=== PATIENT | male | born 1985 | race Caucasian/White ===

== ENCOUNTER 2016-08-14 22:31 | Emergency (ER) | payer SELFPAY ==
--- NOTE | 2016-08-14 23:10 | ED NURSING NOTES ---
Clinical Report - Nurses [facility] [address] [place] [address] 08/14/2016 22:32 Patient: LIZ PEDRO TRIAGE Triage time 22:37 Apr 2016. Acuity: LEVEL 4. Chief Complaint: RIGHT UPPER TOOTHACHE and (pt c/o dental pain RU, x 3 months, has not seen the dentist). Alert. No acute distress. SEPSIS SCREEN: Sepsis Screen: negative. Negative (no infection suspected/documented). --22:43 Ej Faith R.N. 22:37 08/14/16. --23:10 Ej Faith R.N. 22:37 08/14/16. BP: 134/80. HR: 94. RR: 19. O2 saturation: 96%. Temp: 98.0 F. Pain level now 10/13. --23:11 Ej Faith R.N. Weight: 61.2 kg stated. Height/Length: 70 inches Per Patient. BMI: 19.4. --22:41 Ej Faith R.N. Medications None. --22:39 Ej Faith R.N. Medication/allergy information source: the patient. --22:43 Ej Faith R.N. Allergies None. --22:39 Ej Faith R.N. History Arrived by private vehicle. Historian: patient. Accompanied by friend. Onset. (3 months). He has no dental appointment scheduled. He has had facial pain and ear pain. He has had a toothache. PAST MEDICAL HX: Immunizations: up-to-date. SOCIAL HX: Heavy tobacco smoker- 1 pack per day. Alcohol use; consumes beer occasionally. History of heavy drug use: marijuana. No infectious disease exposure. ABUSE ASSESSMENT: No report of abuse. SELF HARM ASSESSMENT: A self harm assessment was performed. The patient answered "no" to the question "Have you recently felt down, depressed, or hopeless?", "Have you noticed less interest or pleasure in doing things?", "Do you have thoughts of harming or killing yourself?", "Are you here because you tried to hurt yourself?", "Have you ever tried to hurt yourself before today?", "Have you recently had thoughts about harming or killing others?" and "Do you have any dangerous items in your possession?". FALL RISK ASSESSMENT: Fall risk assessment completed. No fall risk identified. NUTRITIONAL RISK ASSESSMENT: The nutritional risk assessment revealed no deficiencies. FUNCTIONAL ASSESSMENT: Functional assessment: no impairments noted. LEARNING NEEDS ASSESSMENT: The learning needs assessment revealed no barriers. SKIN INTEGRITY ASSESSMENT: Skin integrity risk assessment completed. No skin integrity risk identified. --22:43 Ej Faith R.N. PROBLEMS: Childhood asthma. --22:40 Ej Faith R.N. ADDITIONAL SURGERIES: Hernia Repair. Knee Surgery. --22:40 Ej Faith R.N. Interventions ID band on patient. To treatment room. --22:43 Ej Faith R.N. PHYSICAL ASSESSMENT GENERAL / NEURO / PSYCH: Alert. Oriented X 4. Appears in no acute distress. HEENT: Pupils equal, round and reactive to light. Voice within normal limits. Moderate dental tenderness (right upper). Dental decay (right upper teeth). Mucous membranes are pink. RESPIRATORY: Respirations not labored. CVS: Capillary refill less than 2 seconds. SKIN: Skin is warm and dry. Normal skin turgor. --22:44 Ej aFith R.N. Ambulatory to room. --22:45 Ej Faith R.N. NURSING PROGRESS NOTES Head of bed elevated. Reassurance given to the patient. Two patient identifiers checked. Call light placed in reach. Side rails up x 1. Bed placed in lowest position. Brakes of bed on. Patient ready for evaluation- chart flagged. Patient waiting for evaluation. --22:45 Ej Faith R.N. 22:56 08/14/2016 Penicillin V Potassium PO Tablets 500 mg given. Allergies verified and confirmed 5 rights. --23:01 Ej Faith R.N. Reassessment after medication administered. He has had no adverse reaction. --23:14 Ej Faith R.N. 23:14 08/14/2016 Penicillin V Potassium PO Response: no adverse reaction. --23:15 Ej aFith R.N. DISPOSITION / DISCHARGE Departure time: 23:14 Aug 14 2016. Condition at departure: unchanged. The goals identified in the patient's plan of care were met. ( MD offered pt dental block and pt declined "I have a high pain tolerance"). No learning barriers present. Discharge instructions provided and reviewed with the patient. Reviewed medication(s) side effects and course information. Prescription(s) given to the patient. Reviewed need to stop smoking. Patient verbalized understanding. Written instructions provided in Polish. The patient was discharged by the physician. He was discharged home and accompanied by franchise manager. He left the Emergency Department ambulatory and via private vehicle. Patient driving. FALL RISK ASSESSMENT: Fall risk assessment completed. No fall risk identified. --23:14 Ej Faith R.N. 23:11 08/14/16. BP: 125/71. HR: 86. RR: 17. O2 saturation: 98%. Temp: 97.6 F. Pain level now 10. --23:14 Ej Faith R.N. Locked/Released at 08/15/2016 13:55 by Ej Faith R.N.
--- NOTE | 2016-08-14 23:10 | ED CLINICAL REPORT ---
Clinical Report - Physicians/Mid Levels [facility] [address] [place] [address] 08/14/2016 22:32 Patient: LIZ PEDRO Time Seen: 2240. Arrived- By private vehicle. Historian- patient. HISTORY OF PRESENT ILLNESS Chief Complaint: DENTAL PAIN. This started Off and on for the past several weeks and is still present and worsening. It was abrupt in onset and has been intermittent but is not gone now. Pain described as moderate. The patient has had toothache and facial pain. Similar symptoms previously: None. Recent medical care: Not recently seen/assessed. REVIEW OF SYSTEMS No skin rash. All systems otherwise negative, except as recorded above. PAST HISTORY See nurses notes. SOCIAL HISTORY Smoker- current status unknown. Alcohol use. History of drug use: marijuana. No recent travel. Is a local resident. ADDITIONAL NOTES The nursing notes have been reviewed. PHYSICAL EXAM Vital Signs: 08/14/2016 22:37 BP: 134/80. HR: 94. RR: 19. O2 saturation: 96%. Temp: 98.0 F. Blood pressure normal. Oxygen saturation normal. Appearance: Alert. No acute distress. Head: Normal external inspection. Eyes: Pupils equal, round and reactive to light. Conjunctivae and eyelids normal. ENT: Moderate, extensive dental decay (upper right molars). Ears normal. Nose normal. Pharynx normal. Lips normal. Gums normal. No trismus present. Uvula midline. (no brawny edema). Neck: Normal inspection. Trachea midline. No adenopathy. Thyroid normal. Neck supple. CVS: Normal heart rate and rhythm. Heart sounds normal. Pulses normal. Respiratory: No respiratory distress. Breath sounds normal. Chest nontender. Skin: Normal skin color. No rash. Normal skin turgor. PROGRESS AND PROCEDURES Course of Care: The patient is a pleasant 30 yo female presenting for evaluation of dental pain. Patient has been evaluated for retropharyngeal abscess, Ludwigs angina, acute necrotizing ulcerative gingivitis, and peritonsillar abscess. The exam findings are not consistent with any of these etiologies. Evidence for dental pain noted on examination. No concern for airway compromise at this time. Patient appears nontoxic. Vital signs are otherwise unremarkable. Do not feel patient is septic at this time. Patient be managed conservatively at this time with antibiotics and nonsteroidal anti-inflammatory medications as tolerated. Patient be instructed to avoid nonsteroidal anti-inflammatory medications if theyre allergic or have intolerances. Did not feel patient needs to be admitted to the hospital or require further emergency department workup/evaluation. Encouraged patient to follow up with the dentist as soon as possible ideally within the next 2 or 3 days. Has appointment tomorrow which she is encouraged to keep. Reviewed risks and benefits of the procedure. Patient has been reevaluated. No evidence of airway compromise. Patient continues to be nontoxic and in no acute distress. I discussed the patient workup, diagnosis, home care, follow-up, and return precautions. All questions answered. The patient expressed understanding of these instructions and was agreeable to them. CLINICAL IMPRESSION 08/14/2016 22:42 BP: 122/79. HR: 84. RR: 17. O2 saturation: 98%. Temp: 98.1 F. Pain level now: 4/10. Oxygen saturation normal. Dental caries (extensive decay) (acute). right facial pain, acute. INSTRUCTIONS Warnings: GENERAL WARNINGS: Return or contact your physician immediately if your condition worsens or changes unexpectedly, if not improving as expected, or if other problems arise. Specifically return if pain, vomiting, bleeding, breathing difficulty or fever. Your Current Medications: CONTINUE TAKING THE FOLLOWING MEDICATIONS: None*. Prescription Medications: Penicillin V 500 mg: take 1 tab orally every 8 hours for 10 days. Dispense thirty (30). No refills. (disp 30 tabs) Motrin 600 mg tablets: take 1 tablet orally every 6 hours as needed for pain, stiffness or swelling. Dispense thirty (30). No refill. Substitution is permissible. (take with food) Follow-up: Return to the emergency department as needed. Follow up with your doctor in three days. Reason for referral: recheck today's concerns. Summary of care provided to patient via paper. Screening today revealed the patient's blood pressure to be in the normal range. The patient should follow up with a primary care provider for blood pressure management. Understanding of the discharge instructions verbalized by patient. (Electronically signed by Soham Lion Dr. 08/20/2016 18:24)
--- NOTE | 2016-08-14 23:10 | ED ORDER SUMMARY ---
..... Patient: LIZ PEDRO OrderSheet [facility] VisitID: [id number] [place] [address] 30y, M Registration Date/Time: 08/14/2016 ORDER SHEET Weight: 61.2 kg (stated) Allergies: None GENERAL ORDERS: MEDICATION ORDERS: Penicillin V Potassium PO 500 mg (NOW) (22:48 08/14/2016 Olivia Toledo) (Ack 22:53 Tiffanie R.NSean) (23:01 Tiffanie Davenport.Stephanie) IV FLUIDS: ORDER SHEET NOTES: [Electronically signed by Ej Faith R.N. (13:55 08/15/2016)] [Electronically signed by Soham Lion Dr. (18:24 08/20/2016)] [Electronically locked/signed by Ej Faith R.N. (13:55 08/15/2016)]
--- NOTE | 2016-08-14 23:10 | ED NURSING NOTES ---
Clinical Report - Nurses Merged [facility] [address] [place] [address] 08/14/2016 22:32 Patient: LIZ PEDRO TRIAGE Triage time 22:37 Apr 2016. Acuity: LEVEL 4. Chief Complaint: RIGHT UPPER TOOTHACHE and (pt c/o dental pain RU, x 3 months, has not seen the dentist). Alert. No acute distress. SEPSIS SCREEN: Sepsis Screen: negative. Negative (no infection suspected/documented). --22:43 Ej Faith R.N. 22:37 08/14/16. --23:10 Ej Faith R.N. 22:37 08/14/16. BP: 134/80. HR: 94. RR: 19. O2 saturation: 96%. Temp: 98.0 F. Pain level now 10/13. --23:11 Ej Faith R.N. Weight: 61.2 kg stated. Height/Length: 70 inches Per Patient. BMI: 19.4. --22:41 Ej Faith R.N. Medications None. --22:39 Ej Faith R.N. Medication/allergy information source: the patient. --22:43 Ej Faith R.N. Allergies None. --22:39 Ej Faith R.N. History Arrived by private vehicle. Historian: patient. Accompanied by friend. Onset. (3 months). He has no dental appointment scheduled. He has had facial pain and ear pain. He has had a toothache. PAST MEDICAL HX: Immunizations: up-to-date. SOCIAL HX: Heavy tobacco smoker- 1 pack per day. Alcohol use; consumes beer occasionally. History of heavy drug use: marijuana. No infectious disease exposure. ABUSE ASSESSMENT: No report of abuse. SELF HARM ASSESSMENT: A self harm assessment was performed. The patient answered "no" to the question "Have you recently felt down, depressed, or hopeless?", "Have you noticed less interest or pleasure in doing things?", "Do you have thoughts of harming or killing yourself?", "Are you here because you tried to hurt yourself?", "Have you ever tried to hurt yourself before today?", "Have you recently had thoughts about harming or killing others?" and "Do you have any dangerous items in your possession?". FALL RISK ASSESSMENT: Fall risk assessment completed. No fall risk identified. NUTRITIONAL RISK ASSESSMENT: The nutritional risk assessment revealed no deficiencies. FUNCTIONAL ASSESSMENT: Functional assessment: no impairments noted. LEARNING NEEDS ASSESSMENT: The learning needs assessment revealed no barriers. SKIN INTEGRITY ASSESSMENT: Skin integrity risk assessment completed. No skin integrity risk identified. --22:43 Ej Faith R.N. PROBLEMS: Childhood asthma. --22:40 Ej Faith R.N. ADDITIONAL SURGERIES: Hernia Repair. Knee Surgery. --22:40 Ej Faith R.N. Interventions ID band on patient. To treatment room. --22:43 Ej Faith R.N. PHYSICAL ASSESSMENT GENERAL / NEURO / PSYCH: Alert. Oriented X 4. Appears in no acute distress. HEENT: Pupils equal, round and reactive to light. Voice within normal limits. Moderate dental tenderness (right upper). Dental decay (right upper teeth). Mucous membranes are pink. RESPIRATORY: Respirations not labored. CVS: Capillary refill less than 2 seconds. SKIN: Skin is warm and dry. Normal skin turgor. --22:44 Ej Faith R.N. Ambulatory to room. --22:45 Ej Faith R.N. NURSING PROGRESS NOTES Head of bed elevated. Reassurance given to the patient. Two patient identifiers checked. Call light placed in reach. Side rails up x 1. Bed placed in lowest position. Brakes of bed on. Patient ready for evaluation- chart flagged. Patient waiting for evaluation. --22:45 Ej Faith R.N. 22:56 08/14/2016 Penicillin V Potassium PO Tablets 500 mg given. Allergies verified and confirmed 5 rights. --23:01 Ej Faith R.N. Reassessment after medication administered. He has had no adverse reaction. --23:14 Ej Faith R.N. 23:14 08/14/2016 Penicillin V Potassium PO Response: no adverse reaction. --23:15 Ej Faith R.N. DISPOSITION / DISCHARGE Departure time: 23:14 Aug 14 2016. Condition at departure: unchanged. The goals identified in the patient's plan of care were met. ( MD offered pt dental block and pt declined "I have a high pain tolerance"). No learning barriers present. Discharge instructions provided and reviewed with the patient. Reviewed medication(s) side effects and course information. Prescription(s) given to the patient. Reviewed need to stop smoking. Patient verbalized understanding. Written instructions provided in Yoruba. The patient was discharged by the physician. He was discharged home and accompanied by gut puller. He left the Emergency Department ambulatory and via private vehicle. Patient driving. FALL RISK ASSESSMENT: Fall risk assessment completed. No fall risk identified. --23:14 Ej Faith R.N. 23:11 08/14/16. BP: 125/71. HR: 86. RR: 17. O2 saturation: 98%. Temp: 97.6 F. Pain level now 10. --23:14 Ej Faith R.N. Locked/Released at 08/15/2016 13:55 by Ej Faith R.N.
--- NOTE | 2016-08-14 23:10 | ED ORDER SUMMARY ---
..... Patient: LIZ PEDRO OrderSheet [facility] VisitID: [id number] [place] [address] 30y, M Registration Date/Time: 08/14/2016 ORDER SHEET Weight: 61.2 kg (stated) Allergies: None GENERAL ORDERS: MEDICATION ORDERS: Penicillin V Potassium PO 500 mg (NOW) (22:48 08/14/2016 Olivia Toledo) (Ack 22:53 Tiffanie R.NSean) (23:01 Tiffanie Davenport.Stephanie) IV FLUIDS: ORDER SHEET NOTES: [Electronically signed by Ej Faith R.N. (13:55 08/15/2016)] [Electronically signed by Soham Lion Dr. (18:24 08/20/2016)] [Electronically locked/signed by Ej Faith R.N. (13:55 08/15/2016)]
--- NOTE | 2016-08-20 18:24 | ED DISCHARGE INSTRUCTIONS ---
Patient: LIZ PEDRO General Instructions [facility] VisitID: [id number] [place] [address] 30y, M Registration Date/Time: 08/14/2016 08/14/2016 22:42 BP: 122/79. HR: 84. RR: 17. O2 saturation: 98%. Temp: 98.1 F. Pain level now: 4/10. Oxygen saturation normal. Dental caries (extensive decay) (acute). right facial pain, acute. INSTRUCTIONS Warnings: GENERAL WARNINGS: Return or contact your physician immediately if your condition worsens or changes unexpectedly, if not improving as expected, or if other problems arise. Specifically return if pain, vomiting, bleeding, breathing difficulty or fever. Your Current Medications: CONTINUE TAKING THE FOLLOWING MEDICATIONS: None*. Prescription Medications: Penicillin V 500 mg: take 1 tab orally every 8 hours for 10 days. Dispense thirty (30). No refills. (disp 30 tabs) Motrin 600 mg tablets: take 1 tablet orally every 6 hours as needed for pain, stiffness or swelling. Dispense thirty (30). No refill. Substitution is permissible. (take with food) Follow-up: Return to the emergency department as needed. Follow up with your doctor in three days. Reason for referral: recheck today's concerns. Summary of care provided to patient via paper. Screening today revealed the patient's blood pressure to be in the normal range. The patient should follow up with a primary care provider for blood pressure management. Understanding of the discharge instructions verbalized by patient. ADDITIONAL INFORMATION Dental Cavity A dental cavity is a pit or crater in the enamel surface of the tooth. This exposes the sensitive inner layer of the tooth and causes pain. If untreated, the cavity will get bigger and may cause an infection or abscess in the root of the tooth. An infection in the tooth is a much more serious problem and may require a root canal or removal of the entire tooth. The tooth pain may be made worse by drinking hot or cold fluids. It may spread from the tooth to the ear or jaw on the same side. Home Care: Avoid hot and cold foods, and liquids since your tooth may be sensitive to temperature changes. If your tooth is chipped or cracked, or if there is a large open cavity, apply OIL OF CLOVES (available zvyw-rli-rifvxqe in drug stores) directly to the tooth to reduce pain. Some pharmacies carry an eeiy-glb-awtwxhc "toothache kit." This contains oil of cloves and a paste, which can be applied over the exposed tooth to decrease sensitivity. An ice pack on your jaw over the sore area may help to reduce pain. You may use acetaminophen (Tylenol) or ibuprofen (Motrin, Advil) to control pain, unless another pain medicine was prescribed. [ NOTE: If you have liver disease or ever had a stomach ulcer, talk with your doctor before using these medicines.] If you have signs of an infection, an antibiotic will be given. Take it as directed. Follow-Up with your dentist as directed. Although your pain may go away with the treatment given, only a dentist can fully evaluate and treat this problem to prevent further tooth damage. Get Prompt Medical Attention if any of the following occur: Redness or swelling of the face Pain worsens or spreads to the neck Fever over 100.5 F (38C) Unusual drowsiness; headache or stiff neck; weakness or fainting Pus drains from the tooth or gum Difficulty swallowing or breathing Dental Pain A crack or cavity in the tooth, which exposes the sensitive inner area of the tooth can cause tooth pain. An infection in the gum or the root of the tooth can cause pain and swelling. The pain is often made worse by drinking hot or cold fluids, or biting on hard foods. Pain may spread from the tooth to the ear or jaw on the same side. Home Care: Avoid hot and cold foods and liquids since your tooth may be sensitive to temperature changes. If your tooth is chipped or cracked, or if there is a large open cavity, apply OIL OF CLOVES (available bpbf-wwm-bopbwma in drug stores) directly to the tooth to reduce pain. Some pharmacies carry an zrdf-bnb-oczniog "toothache kit." This contains a paste, which can be applied over the exposed tooth to decrease sensitivity. A cold pack on your jaw over the sore area may help reduce pain. You may use acetaminophen (Tylenol) or ibuprofen (Motrin, Advil) to control pain, unless another medicine was prescribed. [ NOTE: If you have chronic liver or kidney disease or ever had a stomach ulcer or GI bleeding, talk with your doctor before using these medicines.] If you have signs of an infection, an antibiotic will be given. Take it as directed. Follow-Up as directed with a dentist. Your pain may go away with the treatment given. However, only a dentist can fully evaluate and treat the cause and prevent the pain from coming back again. TOOTHACHE IS A SIGN OF DISEASE IN YOUR TOOTH AND SHOULD BE EXAMINED AND TREATED BY A DENTIST. Get Prompt Medical Attention if any of the following occur: Your face becomes swollen or red Pain worsens or spreads to the neck Fever over 100.4 F (38.0 C) Unusual drowsiness; headache or stiff neck; weakness or fainting Pus drains from the tooth Difficulty swallowing or breathing Penicillin V Potassium Oral tablet What is this medicine? PENICILLIN V (pen i SILL in V) is a penicillin antibiotic. It is used to treat certain kinds of bacterial infections. It will not work for colds, flu, or other viral infections. How should I use this medicine? Take this medicine by mouth with a full glass of water. Follow the directions on the prescription label. Take your medicine at regular intervals. Do not take your medicine more often than directed. Take all of your medicine as directed even if you think your are better. Do not skip doses or stop your medicine early. Talk to your recruitment specialist regarding the use of this medicine in children. While this drug may be prescribed for selected conditions, precautions do apply. What side effects may I notice from receiving this medicine? Side effects that you should report to your doctor or health skin care consultant as soon as possible: allergic reactions like skin rash or hives, swelling of the face, lips, or tongue breathing problems fever new symptoms of infection redness, blistering, peeling or loosening of the skin, including inside the mouth unusually weak or tired Side effects that usually do not require medical attention (report to your doctor or health skin care consultant if they continue or are bothersome): diarrhea headache nausea, vomiting sore mouth or tongue stomach upset What may interact with this medicine? control pills methotrexate other antibiotics probenecid some vaccines What if I miss a dose? If you miss a dose, take it as soon as you can. If it is almost time for your next dose, take only that dose. Do not take double or extra doses. Where should I keep my medicine? Keep out of the reach of children. Store at room temperature between 15 and 30 degrees C (59 and 86 degrees F). Keep container tightly closed. Throw away any unused medicine after the expiration date. What should I tell my health care provider before I take this medicine? They need to know if you have any of these conditions: asthma bowel disease, like colitis eczema kidney disease an unusual or allergic reaction to penicillin, cephalosporins, other antibiotics or medicines, foods, tartrazine or other dyes, or preservatives or trying to get breast-feeding What should I watch for while using this medicine? Tell your doctor or health skin care consultant if your symptoms do not improve. Do not treat diarrhea with over the counter products. Contact your doctor if you have diarrhea that lasts more than 2 days or if it is severe and watery. If you have diabetes, you may get a false-positive result for sugar in your urine. Check with your doctor or health skin care consultant. control pills may not work properly while you are taking this medicine. Talk to your doctor about using an extra method of control. Ibuprofen Oral tablet What is this medicine? IBUPROFEN (eye BYOO proe fen) is a non-steroidal anti-inflammatory drug (NSAID). It is used for dental pain, fever, headaches or migraines, osteoarthritis, rheumatoid arthritis, or painful monthly periods. It can also relieve minor aches and pains caused by a cold, flu, or sore throat. How should I use this medicine? Take this medicine by mouth with a glass of water. Follow the directions on the prescription label. Take this medicine with food if your stomach gets upset. Try to not lie down for at least 10 minutes after you take the medicine. Take your medicine at regular intervals. Do not take your medicine more often than directed. A special MedGuide will be given to you by the pharmacist with each prescription and refill. Be sure to read this information carefully each time. Talk to your recruitment specialist regarding the use of this medicine in children. Special care may be needed. What side effects may I notice from receiving this medicine? Side effects that you should report to your doctor or health skin care consultant as soon as possible: allergic reactions like skin rash, itching or hives, swelling of the face, lips, or tongue black or bloody stools, blood in the urine or in vomit breathing problems changes in vision chest pain general ill feeling or flu-like symptoms nausea or vomiting redness, blistering, peeling or loosening of the skin, including inside the mouth slurred speech or weakness on one side of the body stomach pain unexplained weight gain or swelling unusually weak or tired yellowing of eyes or skin Side effects that usually do not require medical attention (report to your doctor or health skin care consultant if they continue or are bothersome): constipation or diarrhea dizziness gas or heartburn stomach upset What may interact with this medicine? Do not take this medicine with any of the following medications: cidofovir ketorolac methotrexate pemetrexed This medicine may also interact with the following medications: alcohol aspirin diuretics lithium other drugs for inflammation like prednisone warfarin What if I miss a dose? If you miss a dose, take it as soon as you can. If it is almost time for your next dose, take only that dose. Do not take double or extra doses. Where should I keep my medicine? Keep out of the reach of children. Store at room temperature between 15 and 30 degrees C (59 and 86 degrees F). Keep container tightly closed. Throw away any unused medicine after the expiration date. What should I tell my health care provider before I take this medicine? They need to know if you have any of these conditions: asthma cigarette smoker drink more than 3 alcohol containing drinks a day heart disease or circulation problems such as heart failure or leg edema (fluid retention) high blood pressure kidney disease liver disease stomach bleeding or ulcers an unusual or allergic reaction to ibuprofen, aspirin, other NSAIDS, other medicines, foods, dyes, or preservatives or trying to get breast-feeding What should I watch for while using this medicine? Tell your doctor or healthcare professional if your symptoms do not start to get better or if they get worse. This medicine does not prevent heart attack or stroke. In fact, this medicine may increase the chance of a heart attack or stroke. The chance may increase with longer use of this medicine and in people who have heart disease. If you take aspirin to prevent heart attack or stroke, talk with your doctor or health skin care consultant. Do not take other medicines that contain aspirin, ibuprofen, or naproxen with this medicine. Side effects such as stomach upset, nausea, or ulcers may be more likely to occur. Many medicines available without a prescription should not be taken with this medicine. This medicine can cause ulcers and bleeding in the stomach and intestines at any time during treatment. Ulcers and bleeding can happen without warning symptoms and can cause . To reduce your risk, do not smoke cigarettes or drink alcohol while you are taking this medicine. You may get drowsy or dizzy. Do not drive, use machinery, or do anything that needs mental alertness until you know how this medicine affects you. Do not stand or sit up quickly, especially if you are an older patient. This reduces the risk of dizzy or fainting spells. This medicine can cause you to bleed more easily. Try to avoid damage to your teeth and gums when you brush or floss your teeth. You have been given the following additional information: Dental Cavity Dental Pain Penicillin V Potassium Oral tablet Ibuprofen Oral tablet (Electronically signed by Soham Lion Dr. 08/20/2016 18:24)
--- NOTE | 2016-08-20 18:24 | ED MED RECONCILIATION SUMMARY ---
Patient: LIZ PEDRO Medication Reconciliation Report [facility] VisitID: [id number] [place] [address] 30y, M Registration Date/Time: 08/14/2016 Weight: 61.2 kg Height/Length: 70 in. BMI: 19.4 ALLERGIES: None The patient's Home Medications are listed below: NONE. The source(s) of the original Home Medication information: patient The following Medications were given to the patient in the Emergency Department: Penicillin V Potassium [PO] PO 500 mg, administered: 08/14/2016 10:56:00 PM The following Medications were prescribed to the patient: Penicillin V 500 mg: take 1 tab orally every 8 hours for 10 days. Dispense thirty (30). No refills.(disp 30 tabs) -- Soham Lion Dr. Motrin 600 mg tablets: take 1 tablet orally every 6 hours as needed for pain, stiffness or swelling. Dispense thirty (30). No refill. Substitution is permissible.(take with food) -- Soham Lion Dr.
--- NOTE | 2016-08-20 18:24 | ED MED RECONCILIATION SUMMARY ---
Patient: LIZ PEDRO Medication Reconciliation Report [facility] VisitID: [id number] [place] [address] 30y, M Registration Date/Time: 08/14/2016 Weight: 61.2 kg Height/Length: 70 in. BMI: 19.4 ALLERGIES: None The patient's Home Medications are listed below: NONE. The source(s) of the original Home Medication information: patient The following Medications were given to the patient in the Emergency Department: Penicillin V Potassium [PO] PO 500 mg, administered: 08/14/2016 10:56:00 PM The following Medications were prescribed to the patient: Penicillin V 500 mg: take 1 tab orally every 8 hours for 10 days. Dispense thirty (30). No refills.(disp 30 tabs) -- Soham Lion Dr. Motrin 600 mg tablets: take 1 tablet orally every 6 hours as needed for pain, stiffness or swelling. Dispense thirty (30). No refill. Substitution is permissible.(take with food) -- Soham Lion Dr.
--- NOTE | 2016-08-20 18:24 | ED MAR SUMMARY ---
..... Medication Administration Record [facility] [address] [place] [address] Patient: LIZ PEDRO Visit ID: [id number] 30y, M Weight: 61.2 kg Height/Length: 70 in BMI: 19.4 ALLERGIES: None Given 22:56 08/14/2016 Ej Faith R.N. Medication Administered: PENICILLIN V POTASSIUM [PO], Dose: 500 mg Tablets PO. Medication Ordered: Penicillin V Potassium PO 500 mg (NOW).
--- NOTE | 2016-08-20 18:24 | ED MAR SUMMARY ---
..... Medication Administration Record [facility] [address] [place] [address] Patient: LIZ PEDRO Visit ID: [id number] 30y, M Weight: 61.2 kg Height/Length: 70 in BMI: 19.4 ALLERGIES: None Given 22:56 08/14/2016 Ej Faith R.N. Medication Administered: PENICILLIN V POTASSIUM [PO], Dose: 500 mg Tablets PO. Medication Ordered: Penicillin V Potassium PO 500 mg (NOW).
--- NOTE | 2016-08-20 18:24 | ED DISCHARGE INSTRUCTIONS ---
Patient: LIZ PEDRO General Instructions [facility] VisitID: [id number] [place] [address] 30y, M Registration Date/Time: 08/14/2016 08/14/2016 22:42 BP: 122/79. HR: 84. RR: 17. O2 saturation: 98%. Temp: 98.1 F. Pain level now: 4/10. Oxygen saturation normal. Dental caries (extensive decay) (acute). right facial pain, acute. INSTRUCTIONS Warnings: GENERAL WARNINGS: Return or contact your physician immediately if your condition worsens or changes unexpectedly, if not improving as expected, or if other problems arise. Specifically return if pain, vomiting, bleeding, breathing difficulty or fever. Your Current Medications: CONTINUE TAKING THE FOLLOWING MEDICATIONS: None*. Prescription Medications: Penicillin V 500 mg: take 1 tab orally every 8 hours for 10 days. Dispense thirty (30). No refills. (disp 30 tabs) Motrin 600 mg tablets: take 1 tablet orally every 6 hours as needed for pain, stiffness or swelling. Dispense thirty (30). No refill. Substitution is permissible. (take with food) Follow-up: Return to the emergency department as needed. Follow up with your doctor in three days. Reason for referral: recheck today's concerns. Summary of care provided to patient via paper. Screening today revealed the patient's blood pressure to be in the normal range. The patient should follow up with a primary care provider for blood pressure management. Understanding of the discharge instructions verbalized by patient. ADDITIONAL INFORMATION Dental Cavity A dental cavity is a pit or crater in the enamel surface of the tooth. This exposes the sensitive inner layer of the tooth and causes pain. If untreated, the cavity will get bigger and may cause an infection or abscess in the root of the tooth. An infection in the tooth is a much more serious problem and may require a root canal or removal of the entire tooth. The tooth pain may be made worse by drinking hot or cold fluids. It may spread from the tooth to the ear or jaw on the same side. Home Care: Avoid hot and cold foods, and liquids since your tooth may be sensitive to temperature changes. If your tooth is chipped or cracked, or if there is a large open cavity, apply OIL OF CLOVES (available izdz-obv-xhxvien in drug stores) directly to the tooth to reduce pain. Some pharmacies carry an qduq-oap-mnqqdmp "toothache kit." This contains oil of cloves and a paste, which can be applied over the exposed tooth to decrease sensitivity. An ice pack on your jaw over the sore area may help to reduce pain. You may use acetaminophen (Tylenol) or ibuprofen (Motrin, Advil) to control pain, unless another pain medicine was prescribed. [ NOTE: If you have liver disease or ever had a stomach ulcer, talk with your doctor before using these medicines.] If you have signs of an infection, an antibiotic will be given. Take it as directed. Follow-Up with your dentist as directed. Although your pain may go away with the treatment given, only a dentist can fully evaluate and treat this problem to prevent further tooth damage. Get Prompt Medical Attention if any of the following occur: Redness or swelling of the face Pain worsens or spreads to the neck Fever over 100.5 F (38C) Unusual drowsiness; headache or stiff neck; weakness or fainting Pus drains from the tooth or gum Difficulty swallowing or breathing Dental Pain A crack or cavity in the tooth, which exposes the sensitive inner area of the tooth can cause tooth pain. An infection in the gum or the root of the tooth can cause pain and swelling. The pain is often made worse by drinking hot or cold fluids, or biting on hard foods. Pain may spread from the tooth to the ear or jaw on the same side. Home Care: Avoid hot and cold foods and liquids since your tooth may be sensitive to temperature changes. If your tooth is chipped or cracked, or if there is a large open cavity, apply OIL OF CLOVES (available fzbw-ont-zuopgvu in drug stores) directly to the tooth to reduce pain. Some pharmacies carry an rdky-yzi-cdpunki "toothache kit." This contains a paste, which can be applied over the exposed tooth to decrease sensitivity. A cold pack on your jaw over the sore area may help reduce pain. You may use acetaminophen (Tylenol) or ibuprofen (Motrin, Advil) to control pain, unless another medicine was prescribed. [ NOTE: If you have chronic liver or kidney disease or ever had a stomach ulcer or GI bleeding, talk with your doctor before using these medicines.] If you have signs of an infection, an antibiotic will be given. Take it as directed. Follow-Up as directed with a dentist. Your pain may go away with the treatment given. However, only a dentist can fully evaluate and treat the cause and prevent the pain from coming back again. TOOTHACHE IS A SIGN OF DISEASE IN YOUR TOOTH AND SHOULD BE EXAMINED AND TREATED BY A DENTIST. Get Prompt Medical Attention if any of the following occur: Your face becomes swollen or red Pain worsens or spreads to the neck Fever over 100.4 F (38.0 C) Unusual drowsiness; headache or stiff neck; weakness or fainting Pus drains from the tooth Difficulty swallowing or breathing Penicillin V Potassium Oral tablet What is this medicine? PENICILLIN V (pen i SILL in V) is a penicillin antibiotic. It is used to treat certain kinds of bacterial infections. It will not work for colds, flu, or other viral infections. How should I use this medicine? Take this medicine by mouth with a full glass of water. Follow the directions on the prescription label. Take your medicine at regular intervals. Do not take your medicine more often than directed. Take all of your medicine as directed even if you think your are better. Do not skip doses or stop your medicine early. Talk to your call center supervisor regarding the use of this medicine in children. While this drug may be prescribed for selected conditions, precautions do apply. What side effects may I notice from receiving this medicine? Side effects that you should report to your doctor or health patient care manager as soon as possible: allergic reactions like skin rash or hives, swelling of the face, lips, or tongue breathing problems fever new symptoms of infection redness, blistering, peeling or loosening of the skin, including inside the mouth unusually weak or tired Side effects that usually do not require medical attention (report to your doctor or health patient care manager if they continue or are bothersome): diarrhea headache nausea, vomiting sore mouth or tongue stomach upset What may interact with this medicine? control pills methotrexate other antibiotics probenecid some vaccines What if I miss a dose? If you miss a dose, take it as soon as you can. If it is almost time for your next dose, take only that dose. Do not take double or extra doses. Where should I keep my medicine? Keep out of the reach of children. Store at room temperature between 15 and 30 degrees C (59 and 86 degrees F). Keep container tightly closed. Throw away any unused medicine after the expiration date. What should I tell my health care provider before I take this medicine? They need to know if you have any of these conditions: asthma bowel disease, like colitis eczema kidney disease an unusual or allergic reaction to penicillin, cephalosporins, other antibiotics or medicines, foods, tartrazine or other dyes, or preservatives or trying to get breast-feeding What should I watch for while using this medicine? Tell your doctor or health patient care manager if your symptoms do not improve. Do not treat diarrhea with over the counter products. Contact your doctor if you have diarrhea that lasts more than 2 days or if it is severe and watery. If you have diabetes, you may get a false-positive result for sugar in your urine. Check with your doctor or health patient care manager. control pills may not work properly while you are taking this medicine. Talk to your doctor about using an extra method of control. Ibuprofen Oral tablet What is this medicine? IBUPROFEN (eye BYOO proe fen) is a non-steroidal anti-inflammatory drug (NSAID). It is used for dental pain, fever, headaches or migraines, osteoarthritis, rheumatoid arthritis, or painful monthly periods. It can also relieve minor aches and pains caused by a cold, flu, or sore throat. How should I use this medicine? Take this medicine by mouth with a glass of water. Follow the directions on the prescription label. Take this medicine with food if your stomach gets upset. Try to not lie down for at least 10 minutes after you take the medicine. Take your medicine at regular intervals. Do not take your medicine more often than directed. A special MedGuide will be given to you by the pharmacist with each prescription and refill. Be sure to read this information carefully each time. Talk to your call center supervisor regarding the use of this medicine in children. Special care may be needed. What side effects may I notice from receiving this medicine? Side effects that you should report to your doctor or health patient care manager as soon as possible: allergic reactions like skin rash, itching or hives, swelling of the face, lips, or tongue black or bloody stools, blood in the urine or in vomit breathing problems changes in vision chest pain general ill feeling or flu-like symptoms nausea or vomiting redness, blistering, peeling or loosening of the skin, including inside the mouth slurred speech or weakness on one side of the body stomach pain unexplained weight gain or swelling unusually weak or tired yellowing of eyes or skin Side effects that usually do not require medical attention (report to your doctor or health patient care manager if they continue or are bothersome): constipation or diarrhea dizziness gas or heartburn stomach upset What may interact with this medicine? Do not take this medicine with any of the following medications: cidofovir ketorolac methotrexate pemetrexed This medicine may also interact with the following medications: alcohol aspirin diuretics lithium other drugs for inflammation like prednisone warfarin What if I miss a dose? If you miss a dose, take it as soon as you can. If it is almost time for your next dose, take only that dose. Do not take double or extra doses. Where should I keep my medicine? Keep out of the reach of children. Store at room temperature between 15 and 30 degrees C (59 and 86 degrees F). Keep container tightly closed. Throw away any unused medicine after the expiration date. What should I tell my health care provider before I take this medicine? They need to know if you have any of these conditions: asthma cigarette smoker drink more than 3 alcohol containing drinks a day heart disease or circulation problems such as heart failure or leg edema (fluid retention) high blood pressure kidney disease liver disease stomach bleeding or ulcers an unusual or allergic reaction to ibuprofen, aspirin, other NSAIDS, other medicines, foods, dyes, or preservatives or trying to get breast-feeding What should I watch for while using this medicine? Tell your doctor or healthcare professional if your symptoms do not start to get better or if they get worse. This medicine does not prevent heart attack or stroke. In fact, this medicine may increase the chance of a heart attack or stroke. The chance may increase with longer use of this medicine and in people who have heart disease. If you take aspirin to prevent heart attack or stroke, talk with your doctor or health patient care manager. Do not take other medicines that contain aspirin, ibuprofen, or naproxen with this medicine. Side effects such as stomach upset, nausea, or ulcers may be more likely to occur. Many medicines available without a prescription should not be taken with this medicine. This medicine can cause ulcers and bleeding in the stomach and intestines at any time during treatment. Ulcers and bleeding can happen without warning symptoms and can cause . To reduce your risk, do not smoke cigarettes or drink alcohol while you are taking this medicine. You may get drowsy or dizzy. Do not drive, use machinery, or do anything that needs mental alertness until you know how this medicine affects you. Do not stand or sit up quickly, especially if you are an older patient. This reduces the risk of dizzy or fainting spells. This medicine can cause you to bleed more easily. Try to avoid damage to your teeth and gums when you brush or floss your teeth. You have been given the following additional information: Dental Cavity Dental Pain Penicillin V Potassium Oral tablet Ibuprofen Oral tablet (Electronically signed by Soham Lion Dr. 08/20/2016 18:24)
== END 2016-08-14 23:13 | disposition home or self-care (01) ==
LOC: ED SRH 22:31
DX: K02.9 Dental caries, unspecified (principal); G50.1 Atypical facial pain

== ENCOUNTER 2016-10-19 19:36 | Emergency (ER) | payer OTHER ==
--- NOTE | 2016-10-19 20:30 | DIAGNOSTIC IMAGING REPORT ---
PROCEDURE: XR FINGER - LEFT (fifth finger). INDICATION: Table saw injury. TECHNIQUE: Three views. COMPARISON: None. FINDINGS: There is a nondisplaced oblique fracture of the tuft of the distal phalanx with overlying soft tissue wound/injury. The rest of the osseous structures and joint spaces are normal. IMPRESSION: 1. Nondisplaced open fracture of the distal phalanx, left fifth finger.
--- NOTE | 2016-10-19 20:48 | ED CLINICAL REPORT ---
Clinical Report - Physicians/Mid Levels [facility] [address] [place] [address] 10/19/2016 19:36 Patient: LIZ PEDRO Time Seen: 20:00; initial patient contact, initial documentation, patient care assumed. Arrived- By private vehicle. Historian- patient. HISTORY OF PRESENT ILLNESS Chief Complaint: Injury to the left 5th (little) finger. No amputation noted. The injury happened just prior to arrival. The patient sustained a laceration from a power tool (table saw). Occurred at home. ( cutting wood with table saw and got finger). Patient is experiencing mild pain. Patient denies injury to the head or neck. No other injury. REVIEW OF SYSTEMS The patient sustained a laceration. No swelling, tingling, numbness, weakness or foreign body. All systems otherwise negative, except as recorded above. PAST HISTORY See nurses notes. PROBLEMS: Dental Caries. Childhood asthma. --19:47 Toya Villafuerte. ADDITIONAL SURGERIES: Hernia Repair. Knee Surgery. --19:47 Toya Villafuerte. The patient's dominant hand is the right. Tetanus immunization status is unknown. SOCIAL HISTORY Light tobacco smoker. Regular alcohol use. History of occasional drug use: marijuana. No recent travel. Is a local resident. FAMILY HISTORY No significant family medical history. ADDITIONAL NOTES The nursing notes have been reviewed with agreement regarding the chief complaint, HPI, ROS, PMH and patient medications and allergies. PHYSICAL EXAM Vital Signs: 10/19/2016 19:43 BP: 105/53. RR: 20. Temp: 97.4 F. Pain level now: 5/10. Have been reviewed as normal and appear to be correct. Appearance: Alert. Oriented X3. No acute distress. Head: Head atraumatic. Eyes: Pupils equal, round and reactive to light. Eyes normal inspection. Respiratory: No respiratory distress. Skin: Skin warm and dry. Skin intact. Extremities: Hand injury present. Tip of left little finger: mild tenderness and superficial 0.5 cm laceration, which involves the nail bed; (superficial lac on side of finger running across nail, mild bleeding, mild skin avulsion, no closure needed). No erythema, swelling, puncture wound or foreign body. No subungual hematoma, nail avulsion, exposed bone or loss of the nail bed on the left little finger or tip amputation of the left little finger. No wrist injury. Hand and wrist exam otherwise negative. Extremities otherwise negative. Neuro, Vascular and Tendons: Vascular status intact. Sensation intact. Motor intact. Tendon function intact. Neuro: Oriented X 3. No motor deficit. No sensory deficit. Note: isolated injury to finger. LABS, X-RAYS, AND EKG X-Rays: Left hand. Lt Hand X-ray: Digit fracture of the left upper extremity. Fracture of the distal phalanx, little finger. (IMPRESSION: 1. Nondisplaced open fracture of the distal phalanx, left fifth finger. Electronically Final signed by:Edmar Gregorio MD 10/19/2016 8:25:40 PM). The X-rays were independently viewed by me and interpreted by the radiologist. PROGRESS AND PROCEDURES Course of Care: ordered full set of vs, none done prior to dc. Patient counseled in person regarding the patient's stable condition, test results and diagnosis. Differential Diagnosis: Other possible considerations: fingertip amputation, fx, lac, nail/skin avulsion, fb. Above considerations are based on history, physical exam, reassessment and X-Ray data. Differential diagnosis was discussed with patient. Disposition: Discharged home in good and improved condition (20:48). Condition: good and stable. CLINICAL IMPRESSION Open nondisplaced distal phalanx fracture of the left little finger. No angulated fracture of the phalanx. INSTRUCTIONS Apply ice for 20 minutes four times a day for two days until better. Don't apply ice directly to skin. Elevate affected areas above chest level for two days until better. Wear aluminum splint until released. Protect wound and keep wound area clean. Change dressing twice daily. Soak in warm soapy water twice daily. Apply bacitracin twice daily. Warnings: COMPLICATIONS: Complications from this condition include: infection. Future problems may include infection. INFECTION: Watch for signs of infection (increasing heat and redness, pus-like drainage, swelling, or increased pain). Return or see your doctor if these signs occur. It is important to follow up with a physician for further evaluation and treatment. TETANUS: You were given a tetanus shot during your visit. Make a note for future reference. GENERAL WARNINGS: Return or contact your physician immediately if your condition worsens or changes unexpectedly, if not improving as expected, or if other problems arise. Specifically return if problem worsens. Prescription Medications: Cephalexin 500 mg: take 1 capsule orally every 12 hours for 10 days. No refill. [place] 5 mg / 325 mg tablets: take 1 to 2 orally every 6 hours as needed for pain. Dispense fifteen (15). No refills. Substitution is permissible. Motrin 800 mg tablets: take 1 tablet orally every 8 hours as needed for pain. Dispense thirty (30). No refills. Substitution is permissible. Understanding of the discharge instructions verbalized by patient. Follow-up with: [facility], , [address], , [facility] [address]; Flo Rojas M.D., Ortho, , [address], , [facility] [id number]; Efra Mills M.D., Ortho, , [address], , [facility] [address]; Altaf Plaza MD, Orthopedic Surgeon, , [address] , [facility] [address]; Cecil Morataya MD, Orthopedic Surgeon, , [address], , [place], [address] Follow up in about three days even if well. Call for an appointment. Summary of care provided to patient. (Electronically signed by Madhavi Arana A.R.N.P. 10/19/2016 21:16)
--- NOTE | 2016-10-19 20:48 | ED NURSING NOTES ---
Clinical Report - Nurses [facility] [address] [place] [address] 10/19/2016 19:36 Patient: LIZ PEDRO TRIAGE Triage time 19:43 Oct 19 2016. Acuity: LEVEL 3. Chief Complaint: INJURY TO RIGHT HAND. SEPSIS SCREEN: Sepsis Screen: negative. Negative (no infection suspected/documented). DEANNA COMA SCORE: [place] Coma Scale: 15- eyes open spontaneously (4); best verbal response- oriented x 4 (5); best motor response- obeys commands (6). --19:47 Toya Villafuerte 19:43 10/19/16. BP: 105/53. RR: 20. Temp: 97.4 F (oral). Pain level now: 5/10. --19:47 Toya Villafuerte 19:48 10/19/16. HR: 80. O2 saturation: 98% on room air. --01:14 Toya Villafuerte. Weight: 68 kg stated. Height/Length: 70 inches Per Patient. BMI: 21.5. --19:45 Toya Villafuerte. Medications None. --19:46 Toya Villafuerte. Allergies No Known Drug Allergy. --19:46 Toya Villafuerte. Medication/allergy information source: the patient. --19:47 Toya Villafuerte. History Arrived by private vehicle. Historian: patient. Accompanied by family. Primary physician (none). This occurred just prior to arrival. Occurred at home. He sustained a laceration (table saw). ( Patient reports he was cutting wood with a table saw when the saw slipped and he caught his left pinky finger with the saw blade. He reports this happened ten minutes ago. He is unsure of his tetanus status. He reports moderate blood loss prior to arrival.). PAST MEDICAL HX: Tetanus status: unknown. Immunizations: status is unknown. SOCIAL HX: Heavy tobacco smoker (cigarette)- less than 1 pack per day. Regular alcohol use. History of drug use: marijuana. No infectious disease exposure. ABUSE ASSESSMENT: No report of abuse. FALL RISK ASSESSMENT: Fall risk assessment completed. No fall risk identified. NUTRITIONAL RISK ASSESSMENT: The nutritional risk assessment revealed no deficiencies. FUNCTIONAL ASSESSMENT: Functional assessment: no impairments noted. LEARNING NEEDS ASSESSMENT: The learning needs assessment revealed no barriers. SKIN INTEGRITY ASSESSMENT: Skin integrity risk assessment completed. No skin integrity risk identified. --19:47 Toya Villafuerte. PROBLEMS: Dental Caries. Childhood asthma. --19:47 Toya Villafuerte. ADDITIONAL SURGERIES: Hernia Repair. Knee Surgery. --19:47 Toya Villafuerte. Interventions ID band on patient. To treatment room. --19:47 Toya Villafuerte. PHYSICAL ASSESSMENT Ambulatory to room. GENERAL / NEURO / PSYCH: Oriented X 4. Alert. Appears in no acute distress. EXTREMITIES: Extremity pulses are within normal limits. Left hand. Tip of left little finger: deep laceration with controlled bleeding, which involves the nail bed and fold. SKIN: Skin intact. Skin is warm and dry. --19:48 Toya Villafuerte. NURSING PROGRESS NOTES Reassurance given to the patient. Two patient identifiers checked. Call light placed in reach. Side rails up x 1. Bed placed in lowest position. Brakes of bed on. Patient ready for evaluation- chart flagged and ED physician notified. --19:48 Toya Villafuerte Care transferred and report given (Zayra Griffin). ( Patient feeling diaphoretic and light headed. Instructed patient to take deep breaths. Cold cloth applied to head. Wound cleansed and extremity elevated.). --19:49 Toya Villafuerte 19:55. Wound cleansed with sterile saline. --19:55 Rhoda Dangelo, ER Tech1 20:15 X-Ray complete. --20:29 Rhoda Dangelo, ER Tech1 20:25. Applied dressing consisting of adaptic, following the application of antibiotic ointment (bacitracin). Secured with tube gauze (gel foam). --20:36 Rhoda Dangelo, ER Tech1 21:12 10/19/2016 TDAP IM 0.5 mL given. (Lot#: [id number], expiration date: 09/13/2018, Electrical Worker: sanofi pasteur). Given in the left deltoid. Allergies verified and confirmed 5 rights. Vaccine information statement provided to the patient. --21:12 Toya Villafuerte 21:12 10/19/2016 Ceftriaxone IM 1 gm with 1% Lidocaine 2.1mL. Given in the right deltoid. Allergies verified and confirmed 5 rights. --21:12 Toya Villafuerte. DISPOSITION / DISCHARGE 21:10 10/19/16. Condition at departure: improved and stable. The goals identified in the patient's plan of care were met. No learning barriers present. Discharge instructions provided and reviewed with the patient. Reviewed medication(s) side effects, precautions, dosing and course information. Prescription(s) given to the patient. Reviewed wound care and skin care instructions. Reviewed need for increased fluid intake. Patient verbalized understanding. Written instructions provided in Hebrew. ( Follow up with orthopedic clinic three days, contact information provided. Discussed wound care, signs and symptoms of infection. Ice for twenty minutes at a time, elevate extremity and take anti-inflammatories as needed. Patient verbalized understanding and had no additional questions at this time.). The patient was discharged by the nurse practitioner. He was discharged home and accompanied by trailer steerer. He left the Emergency Department ambulatory and via private vehicle. Tele Tech driving. FALL RISK ASSESSMENT: Fall risk assessment completed. No fall risk identified. --23:12 Toya Villafuerte 21:08 10/19/16. BP: 123/69. HR: 82. RR: 18. O2 saturation: 98% on room air. Pain level now: 06/15. --23:12 Toya Villafuerte. Locked/Released at 10/20/2016 1:15 by Toya Villafuerte,
--- NOTE | 2016-10-19 20:48 | ED ORDER SUMMARY ---
..... Patient: LIZ PEDRO OrderSheet [facility] VisitID: [id number] [address] [place] [address] 31y, M Registration Date/Time: 10/19/2016 ORDER SHEET Weight: 68.0 kg (stated) Allergies: No Known Drug Allergy GENERAL ORDERS: Finger Left (Pinky) Urgent (19:48 10/19/2016 HSoule per protocol) (Ack 19:53 RKaruga) (20:20 MCampbell) Splint (Finger) (Left) (Small) (4 prong please) (20:40 10/19/2016 HBivens A.R.N.P.) (Ack 20:49 AMcQuoid ER Tech1) (21:01 AMcQuoid ER Tech1) Vitals (20:46 10/19/2016 HBivens A.R.N.P.) (21:02 HSoule) MEDICATION ORDERS: Tdap IM 0.5 mL (NOW, per protocol) (20:33 10/19/2016 HSoule per protocol) (Ack 21:02 HSoule) (21:12 HSoule) Ceftriaxone IM 1 gm (NOW) (20:40 10/19/2016 HBivens A.R.N.P.) (Ack 21:02 HSoule) (21:12 HSoule) IV FLUIDS: ORDER SHEET NOTES: [Electronically signed by Madhavi Arana A.R.N.P. (21:16 10/19/2016)] [Electronically signed by Toya Villafuerte (01:10/20/2016)] [Electronically locked/signed by Toya Villafuerte (:10/20/2016)]
--- NOTE | 2016-10-19 20:48 | ED ORDER SUMMARY ---
..... Patient: LIZ PEDRO OrderSheet [facility] VisitID: [id number] [address] [place] [address] 31y, M Registration Date/Time: 10/19/2016 ORDER SHEET Weight: 68.0 kg (stated) Allergies: No Known Drug Allergy GENERAL ORDERS: Finger Left (Pinky) Urgent (19:48 10/19/2016 HSoule per protocol) (Ack 19:53 RKaruga) (20:20 MCampbell) Splint (Finger) (Left) (Small) (4 prong please) (20:40 10/19/2016 HBivens A.R.N.P.) (Ack 20:49 AMcQuoid ER Tech1) (21:01 AMcQuoid ER Tech1) Vitals (20:46 10/19/2016 HBivens A.R.N.P.) (21:02 HSoule) MEDICATION ORDERS: Tdap IM 0.5 mL (NOW, per protocol) (20:33 10/19/2016 HSoule per protocol) (Ack 21:02 HSoule) (21:12 HSoule) Ceftriaxone IM 1 gm (NOW) (20:40 10/19/2016 HBivens A.R.N.P.) (Ack 21:02 HSoule) (21:12 HSoule) IV FLUIDS: ORDER SHEET NOTES: [Electronically signed by Madhavi Arana A.R.N.P. (21:16 10/19/2016)] [Electronically signed by Toya Villafuerte (01:10/20/2016)] [Electronically locked/signed by Toya Villafuerte (:10/20/2016)]
--- NOTE | 2016-10-19 20:48 | ED CLINICAL REPORT ---
Clinical Report - Physicians/Mid Levels [facility] [address] [place] [address] 10/19/2016 19:36 Patient: LIZ PEDRO Time Seen: 20:00; initial patient contact, initial documentation, patient care assumed. Arrived- By private vehicle. Historian- patient. HISTORY OF PRESENT ILLNESS Chief Complaint: Injury to the left 5th (little) finger. No amputation noted. The injury happened just prior to arrival. The patient sustained a laceration from a power tool (table saw). Occurred at home. ( cutting wood with table saw and got finger). Patient is experiencing mild pain. Patient denies injury to the head or neck. No other injury. REVIEW OF SYSTEMS The patient sustained a laceration. No swelling, tingling, numbness, weakness or foreign body. All systems otherwise negative, except as recorded above. PAST HISTORY See nurses notes. PROBLEMS: Dental Caries. Childhood asthma. --19:47 Toya Villafuerte. ADDITIONAL SURGERIES: Hernia Repair. Knee Surgery. --19:47 Toya Villafuerte. The patient's dominant hand is the right. Tetanus immunization status is unknown. SOCIAL HISTORY Light tobacco smoker. Regular alcohol use. History of occasional drug use: marijuana. No recent travel. Is a local resident. FAMILY HISTORY No significant family medical history. ADDITIONAL NOTES The nursing notes have been reviewed with agreement regarding the chief complaint, HPI, ROS, PMH and patient medications and allergies. PHYSICAL EXAM Vital Signs: 10/19/2016 19:43 BP: 105/53. RR: 20. Temp: 97.4 F. Pain level now: 5/10. Have been reviewed as normal and appear to be correct. Appearance: Alert. Oriented X3. No acute distress. Head: Head atraumatic. Eyes: Pupils equal, round and reactive to light. Eyes normal inspection. Respiratory: No respiratory distress. Skin: Skin warm and dry. Skin intact. Extremities: Hand injury present. Tip of left little finger: mild tenderness and superficial 0.5 cm laceration, which involves the nail bed; (superficial lac on side of finger running across nail, mild bleeding, mild skin avulsion, no closure needed). No erythema, swelling, puncture wound or foreign body. No subungual hematoma, nail avulsion, exposed bone or loss of the nail bed on the left little finger or tip amputation of the left little finger. No wrist injury. Hand and wrist exam otherwise negative. Extremities otherwise negative. Neuro, Vascular and Tendons: Vascular status intact. Sensation intact. Motor intact. Tendon function intact. Neuro: Oriented X 3. No motor deficit. No sensory deficit. Note: isolated injury to finger. LABS, X-RAYS, AND EKG X-Rays: Left hand. Lt Hand X-ray: Digit fracture of the left upper extremity. Fracture of the distal phalanx, little finger. (IMPRESSION: 1. Nondisplaced open fracture of the distal phalanx, left fifth finger. Electronically Final signed by:Edmar Gregorio MD 10/19/2016 8:25:40 PM). The X-rays were independently viewed by me and interpreted by the radiologist. PROGRESS AND PROCEDURES Course of Care: ordered full set of vs, none done prior to dc. Patient counseled in person regarding the patient's stable condition, test results and diagnosis. Differential Diagnosis: Other possible considerations: fingertip amputation, fx, lac, nail/skin avulsion, fb. Above considerations are based on history, physical exam, reassessment and X-Ray data. Differential diagnosis was discussed with patient. Disposition: Discharged home in good and improved condition (20:48). Condition: good and stable. CLINICAL IMPRESSION Open nondisplaced distal phalanx fracture of the left little finger. No angulated fracture of the phalanx. INSTRUCTIONS Apply ice for 20 minutes four times a day for two days until better. Don't apply ice directly to skin. Elevate affected areas above chest level for two days until better. Wear aluminum splint until released. Protect wound and keep wound area clean. Change dressing twice daily. Soak in warm soapy water twice daily. Apply bacitracin twice daily. Warnings: COMPLICATIONS: Complications from this condition include: infection. Future problems may include infection. INFECTION: Watch for signs of infection (increasing heat and redness, pus-like drainage, swelling, or increased pain). Return or see your doctor if these signs occur. It is important to follow up with a physician for further evaluation and treatment. TETANUS: You were given a tetanus shot during your visit. Make a note for future reference. GENERAL WARNINGS: Return or contact your physician immediately if your condition worsens or changes unexpectedly, if not improving as expected, or if other problems arise. Specifically return if problem worsens. Prescription Medications: Cephalexin 500 mg: take 1 capsule orally every 12 hours for 10 days. No refill. [place] 5 mg / 325 mg tablets: take 1 to 2 orally every 6 hours as needed for pain. Dispense fifteen (15). No refills. Substitution is permissible. Motrin 800 mg tablets: take 1 tablet orally every 8 hours as needed for pain. Dispense thirty (30). No refills. Substitution is permissible. Understanding of the discharge instructions verbalized by patient. Follow-up with: [facility], , [address], , [facility] [address]; Flo Rojas M.D., Ortho, , [address], , [facility] [address]; Efra Mills M.D., Ortho, , [address], , [facility] [address]; Altaf Plaza MD, Orthopedic Surgeon, , [address] , [facility] [address]; Cecil Morataya MD, Orthopedic Surgeon, , [address], , [place], [address] Follow up in about three days even if well. Call for an appointment. Summary of care provided to patient. (Electronically signed by Madhavi Arana A.R.N.P. 10/19/2016 21:16)
--- NOTE | 2016-10-19 20:48 | ED NURSING NOTES ---
Clinical Report - Nurses [facility] [address] [place] [address] 10/19/2016 19:36 Patient: LIZ PEDRO TRIAGE Triage time 19:43 Oct 19 2016. Acuity: LEVEL 3. Chief Complaint: INJURY TO RIGHT HAND. SEPSIS SCREEN: Sepsis Screen: negative. Negative (no infection suspected/documented). DEANNA COMA SCORE: [place] Coma Scale: 15- eyes open spontaneously (4); best verbal response- oriented x 4 (5); best motor response- obeys commands (6). --19:47 Toya Villafuerte 19:43 10/19/16. BP: 105/53. RR: 20. Temp: 97.4 F (oral). Pain level now: 5/10. --19:47 Toya Villafuerte 19:48 10/19/16. HR: 80. O2 saturation: 98% on room air. --01:14 Toya Villafuerte. Weight: 68 kg stated. Height/Length: 70 inches Per Patient. BMI: 21.5. --19:45 Toya Villafuerte. Medications None. --19:46 Toya Villafuerte. Allergies No Known Drug Allergy. --19:46 Toya Villafuerte. Medication/allergy information source: the patient. --19:47 Toya Villafuerte. History Arrived by private vehicle. Historian: patient. Accompanied by family. Primary physician (none). This occurred just prior to arrival. Occurred at home. He sustained a laceration (table saw). ( Patient reports he was cutting wood with a table saw when the saw slipped and he caught his left pinky finger with the saw blade. He reports this happened ten minutes ago. He is unsure of his tetanus status. He reports moderate blood loss prior to arrival.). PAST MEDICAL HX: Tetanus status: unknown. Immunizations: status is unknown. SOCIAL HX: Heavy tobacco smoker (cigarette)- less than 1 pack per day. Regular alcohol use. History of drug use: marijuana. No infectious disease exposure. ABUSE ASSESSMENT: No report of abuse. FALL RISK ASSESSMENT: Fall risk assessment completed. No fall risk identified. NUTRITIONAL RISK ASSESSMENT: The nutritional risk assessment revealed no deficiencies. FUNCTIONAL ASSESSMENT: Functional assessment: no impairments noted. LEARNING NEEDS ASSESSMENT: The learning needs assessment revealed no barriers. SKIN INTEGRITY ASSESSMENT: Skin integrity risk assessment completed. No skin integrity risk identified. --19:47 Toya Villafuerte. PROBLEMS: Dental Caries. Childhood asthma. --19:47 Toya Villafuerte. ADDITIONAL SURGERIES: Hernia Repair. Knee Surgery. --19:47 Toya Villafuerte. Interventions ID band on patient. To treatment room. --19:47 Toya Villafuerte. PHYSICAL ASSESSMENT Ambulatory to room. GENERAL / NEURO / PSYCH: Oriented X 4. Alert. Appears in no acute distress. EXTREMITIES: Extremity pulses are within normal limits. Left hand. Tip of left little finger: deep laceration with controlled bleeding, which involves the nail bed and fold. SKIN: Skin intact. Skin is warm and dry. --19:48 Toya Villafuerte. NURSING PROGRESS NOTES Reassurance given to the patient. Two patient identifiers checked. Call light placed in reach. Side rails up x 1. Bed placed in lowest position. Brakes of bed on. Patient ready for evaluation- chart flagged and ED physician notified. --19:48 Toya Villafuerte Care transferred and report given (Zayra Griffin). ( Patient feeling diaphoretic and light headed. Instructed patient to take deep breaths. Cold cloth applied to head. Wound cleansed and extremity elevated.). --19:49 Toya Villafuerte 19:55. Wound cleansed with sterile saline. --19:55 Rhoda Dangelo, ER Tech1 20:15 X-Ray complete. --20:29 Rhoda Dangelo, ER Tech1 20:25. Applied dressing consisting of adaptic, following the application of antibiotic ointment (bacitracin). Secured with tube gauze (gel foam). --20:36 Rhoda Dangelo, ER Tech1 21:12 10/19/2016 TDAP IM 0.5 mL given. (Lot#: [id number], expiration date: 09/13/2018, Photography Instructor: sanofi pasteur). Given in the left deltoid. Allergies verified and confirmed 5 rights. Vaccine information statement provided to the patient. --21:12 Toya Villafuerte 21:12 10/19/2016 Ceftriaxone IM 1 gm with 1% Lidocaine 2.1mL. Given in the right deltoid. Allergies verified and confirmed 5 rights. --21:12 Toya Villafuerte. DISPOSITION / DISCHARGE 21:10 10/19/16. Condition at departure: improved and stable. The goals identified in the patient's plan of care were met. No learning barriers present. Discharge instructions provided and reviewed with the patient. Reviewed medication(s) side effects, precautions, dosing and course information. Prescription(s) given to the patient. Reviewed wound care and skin care instructions. Reviewed need for increased fluid intake. Patient verbalized understanding. Written instructions provided in Bulgarian. ( Follow up with orthopedic clinic three days, contact information provided. Discussed wound care, signs and symptoms of infection. Ice for twenty minutes at a time, elevate extremity and take anti-inflammatories as needed. Patient verbalized understanding and had no additional questions at this time.). The patient was discharged by the nurse practitioner. He was discharged home and accompanied by refueling ramp attendant. He left the Emergency Department ambulatory and via private vehicle. Aquaculture Farm Manager driving. FALL RISK ASSESSMENT: Fall risk assessment completed. No fall risk identified. --23:12 Toya Villafuerte 21:08 10/19/16. BP: 123/69. HR: 82. RR: 18. O2 saturation: 98% on room air. Pain level now: 06/15. --23:12 Toya Villafueret. Locked/Released at 10/20/2016 1:15 by Toya Villafuerte,
--- NOTE | 2016-10-20 01:15 | ED MED RECONCILIATION SUMMARY ---
Patient: LIZ PEDRO Medication Reconciliation Report [facility] VisitID: [id number] [address] [place] [address] 31y, M Registration Date/Time: 10/19/2016 Weight: 68.0 kg Height/Length: 70 in. BMI: 21.5 ALLERGIES: No Known Drug Allergy The patient's Home Medications are listed below: NONE. The source(s) of the original Home Medication information: patient The following Medications were given to the patient in the Emergency Department: TDAP [IM] IM 0.5 mL, administered: 10/19/2016 9:12:00 PM Ceftriaxone [IM] IM 1 gm with 1% Lidocaine 2.1 mL, administered: 10/19/2016 9:12:00 PM The following Medications were prescribed to the patient: Cephalexin 500 mg: take 1 capsule orally every 12 hours for 10 days. No refill. -- Madhavi Arana, Sydnee.R.N.P. [place] 5 mg / 325 mg tablets: take 1 to 2 orally every 6 hours as needed for pain. Dispense fifteen (15). No refills. Substitution is permissible. -- Madhavi Arana, Sydnee.R.N.P. Motrin 800 mg tablets: take 1 tablet orally every 8 hours as needed for pain. Dispense thirty (30). No refills. Substitution is permissible. -- Madhavi Arana A.R.N.P.
--- NOTE | 2016-10-20 01:15 | ED MED RECONCILIATION SUMMARY ---
Patient: LIZ PEDRO Medication Reconciliation Report [facility] VisitID: [id number] [address] [place] [address] 31y, M Registration Date/Time: 10/19/2016 Weight: 68.0 kg Height/Length: 70 in. BMI: 21.5 ALLERGIES: No Known Drug Allergy The patient's Home Medications are listed below: NONE. The source(s) of the original Home Medication information: patient The following Medications were given to the patient in the Emergency Department: TDAP [IM] IM 0.5 mL, administered: 10/19/2016 9:12:00 PM Ceftriaxone [IM] IM 1 gm with 1% Lidocaine 2.1 mL, administered: 10/19/2016 9:12:00 PM The following Medications were prescribed to the patient: Cephalexin 500 mg: take 1 capsule orally every 12 hours for 10 days. No refill. -- Madhavi Arana, Sydnee.R.N.P. [place] 5 mg / 325 mg tablets: take 1 to 2 orally every 6 hours as needed for pain. Dispense fifteen (15). No refills. Substitution is permissible. -- Madhavi Arana, Sydnee.R.N.P. Motrin 800 mg tablets: take 1 tablet orally every 8 hours as needed for pain. Dispense thirty (30). No refills. Substitution is permissible. -- Madhavi Arana A.R.N.P.
--- NOTE | 2016-10-20 01:15 | ED DISCHARGE INSTRUCTIONS ---
Patient: LIZ PEDRO General Instructions [facility] VisitID: [id number] [address], [place] [address] 31y, M Registration Date/Time: 10/19/2016 Open nondisplaced distal phalanx fracture of the left little finger. No angulated fracture of the phalanx. INSTRUCTIONS Apply ice for 20 minutes four times a day for two days until better. Don't apply ice directly to skin. Elevate affected areas above chest level for two days until better. Wear aluminum splint until released. Protect wound and keep wound area clean. Change dressing twice daily. Soak in warm soapy water twice daily. Apply bacitracin twice daily. Warnings: COMPLICATIONS: Complications from this condition include: infection. Future problems may include infection. INFECTION: Watch for signs of infection (increasing heat and redness, pus-like drainage, swelling, or increased pain). Return or see your doctor if these signs occur. It is important to follow up with a physician for further evaluation and treatment. TETANUS: You were given a tetanus shot during your visit. Make a note for future reference. GENERAL WARNINGS: Return or contact your physician immediately if your condition worsens or changes unexpectedly, if not improving as expected, or if other problems arise. Specifically return if problem worsens. Prescription Medications: Cephalexin 500 mg: take 1 capsule orally every 12 hours for 10 days. No refill. [place] 5 mg / 325 mg tablets: take 1 to 2 orally every 6 hours as needed for pain. Dispense fifteen (15). No refills. Substitution is permissible. Motrin 800 mg tablets: take 1 tablet orally every 8 hours as needed for pain. Dispense thirty (30). No refills. Substitution is permissible. Understanding of the discharge instructions verbalized by patient. Follow-up with: [facility], [place], , [address], [place] [id number]; Flo Rojas M.D., [place], , [address], [facility] [address]; Efra Mills M.D., [place], , [address], , [place] [id number]; Altaf Plaza MD, Orthopedic Surgeon, , [address] , [place], [address]; Cecil Morataya MD, Orthopedic Surgeon, , [address], , [place], [address] Follow up in about three days even if well. Call for an appointment. Summary of care provided to patient. ADDITIONAL INFORMATION Fracture:Finger [Open] You have a fracture of your finger (broken finger) with a nearby cut, puncture or deep scrape. This causes local pain, swelling and bruising. Because of the open injury, there is a risk of infection in the skin and bone. Antibiotics will be used to lower the risk of infection. This injury takes about four weeks to heal. Finger injuries are often treated with a splint, cast or by taping the injured finger to the next one ("pedro taping"). This protects the injured finger and holds the bone in position while it heals. More serious fractures may require surgery. If the FINGERNAIL has been severely injured, it will probably fall off in 1-2 weeks. A new fingernail will usually start to grow back within a month. Home Care: Keep your hand elevated to reduce pain and swelling. When sitting or lying down elevate your arm above the level of your heart. You can do this by placing your arm on a pillow that rests on your chest or on a pillow at your side. This is most important during the first 48 hours after injury. Apply an ice pack (ice cubes in a plastic bag, wrapped in a towel) over the injured area for 20 minutes every 1-2 hours the first day for pain relief. Continue this 3-4 times a day until the pain and swelling goes away. Keep the cast/splint completely dry at all times. Bathe with your cast/splint out of the water, protected with a large plastic bag, rubber-banded at the top end. If a fiberglass cast/splint gets wet, you can dry it with a hair-dryer. If pedro tape was applied and it becomes wet or dirty, change it. You may replace it with paper, plastic or cloth tape. Cloth tape and paper tapes must be kept dry. Keep the pedro tape in place for at least four weeks. You may use acetaminophen (Tylenol) or ibuprofen (Motrin, Advil) to control pain, unless another pain medicine was prescribed. [ NOTE : If you have chronic liver or kidney disease or ever had a stomach ulcer or GI bleeding, talk with your doctor before using these medicines.] Take all antibiotics until finished. Follow Up with your doctor within one week, or as advised by our staff, to be sure the bone is healing properly, . [NOTE: A radiologist will review any X-rays that were taken. We will notify you of any new findings that may affect your care.] Return Promptly or contact your doctor if any of the following occur: The plaster cast or splint becomes wet or soft The fiberglass cast or splint remains wet for more than 24 hours Pain or swelling increase Finger becomes cold, blue, numb or tingly Redness, warmth, swelling, drainage from the wound or foul odor from a cast or splint Fever of 100.4F (38C) or higher, or as directed by your healthcare provider Diphtheria Toxoid Adsorbed, Pertussis Vaccine, Acellular (Adsorbed), Tetanus Toxoid, Adsorbed Suspension for injection What is this medicine? DIPHTHERIA and TETANUS TOXOIDS; PERTUSSIS VACCINE (dif THEER ee uh and TET n us TOK soids; per TUS iss vak SEEN) is used to prevent diphtheria, tetanus, and pertussis infections. How should I use this medicine? This vaccine is for injection into a muscle. It is given by a health child day care provider. A copy of Vaccine Information Statements will be given before each vaccination. Read this sheet carefully each time. The sheet may change frequently. Talk to your energy sales broker regarding the use of this vaccine in children. While the DTP vaccine may be given to children ages 6 weeks to 7 years and the Tdap vaccine may be given to children at least 10 years old, precautions do apply. What side effects may I notice from receiving this medicine? Side effects that you should report to your doctor or health child day care provider as soon as possible: allergic reactions like skin rash, itching or hives, swelling of the face, lips, or tongue breathing problems fever of 103 degrees F or more flu-like symptoms inconsolable crying infection pain, tingling, numbness in the hands or feet seizures swelling of arm or leg that was injected unusually weak or tired Side effects that usually do not require immediate medical attention (report these side effects to your doctor or health child day care provider if they continue or are bothersome): fussy, irritable loss of appetite fever of 102 degrees F or less pain, tenderness, redness, swelling, or a 'knot' at site where injected vomiting What may interact with this medicine? immune globulin medicines that suppress your immune function like adalimumab, anakinra, infliximab medicines to treat cancer medicines that treat or prevent blood clots like warfarin, enoxaparin, and dalteparin steroid medicines like prednisone or cortisone What if I miss a dose? It is important not to miss your dose. Call your doctor or health child day care provider if you are unable to keep an appointment. Where should I keep my medicine? This drug is given in a hospital or clinic and will not be stored at home. What should I tell my health care provider before I take this medicine? They need to know if you have any of these conditions: blood disorders like hemophilia fever or infection immune system problems neurologic disease seizures an unusual or allergic reaction to vaccines, thimerosal, latex, other medicines, foods, dyes, or preservatives or trying to get breast-feeding What should I watch for while using this medicine? See your health care provider for all shots of this vaccine as directed. To have protection from infection, you must have 3 shots of this vaccine plus boosters as needed. Tell your doctor right away if you have any serious or unusual side effects after getting this vaccine. Cephalexin Monohydrate Oral tablet What is this medicine? CEPHALEXIN (sef a BHANU in) is a cephalosporin antibiotic. It is used to treat certain kinds of bacterial infections It will not work for colds, flu, or other viral infections. How should I use this medicine? Take this medicine by mouth with a full glass of water. Follow the directions on the prescription label. This medicine can be taken with or without food. Take your medicine at regular intervals. Do not take your medicine more often than directed. Take all of your medicine as directed even if you think you are better. Do not skip doses or stop your medicine early. Talk to your energy sales broker regarding the use of this medicine in children. While this drug may be prescribed for selected conditions, precautions do apply. What side effects may I notice from receiving this medicine? Side effects that you should report to your doctor or health child day care provider as soon as possible: allergic reactions like skin rash, itching or hives, swelling of the face, lips, or tongue breathing problems pain or trouble passing urine redness, blistering, peeling or loosening of the skin, including inside the mouth severe or watery diarrhea unusually weak or tired yellowing of the eyes, skin Side effects that usually do not require medical attention (report to your doctor or health child day care provider if they continue or are bothersome): gas or heartburn genital or anal irritation headache joint or muscle pain nausea, vomiting What may interact with this medicine? probenecid some other antibiotics What if I miss a dose? If you miss a dose, take it as soon as you can. If it is almost time for your next dose, take only that dose. Do not take double or extra doses. There should be at least 4 to 6 hours between doses. Where should I keep my medicine? Keep out of the reach of children. Store at room temperature between 59 and 86 degrees F (15 and 30 degrees C). Throw away any unused medicine after the expiration date. What should I tell my health care provider before I take this medicine? They need to know if you have any of these conditions: kidney disease stomach or intestine problems, especially colitis an unusual or allergic reaction to cephalexin, other cephalosporins, penicillins, other antibiotics, medicines, foods, dyes or preservatives or trying to get breast-feeding What should I watch for while using this medicine? Tell your doctor or health child day care provider if your symptoms do not begin to improve in a few days. Do not treat diarrhea with over the counter products. Contact your doctor if you have diarrhea that lasts more than 2 days or if it is severe and watery. If you have diabetes, you may get a false-positive result for sugar in your urine. Check with your doctor or health child day care provider. Hydrocodone Bitartrate, Acetaminophen Oral tablet What is this medicine? ACETAMINOPHEN; HYDROCODONE (a set a MARIBETH bhumi fen; janae droe KOE done) is a pain reliever. It is used to treat mild to moderate pain. How should I use this medicine? Take this medicine by mouth. Swallow it with a full glass of water. Follow the directions on the prescription label. If the medicine upsets your stomach, take the medicine with food or milk. Do not take more than you are told to take. Talk to your energy sales broker regarding the use of this medicine in children. This medicine is not approved for use in children. What side effects may I notice from receiving this medicine? Side effects that you should report to your doctor or health child day care provider as soon as possible: allergic reactions like skin rash, itching or hives, swelling of the face, lips, or tongue breathing problems confusion feeling faint or lightheaded, falls stomach pain yellowing of the eyes or skin Side effects that usually do not require medical attention (report to your doctor or health child day care provider if they continue or are bothersome): nausea, vomiting stomach upset What may interact with this medicine? alcohol antihistamines isoniazid medicines for depression, anxiety, or psychotic disturbances medicines for sleep muscle relaxants naltrexone narcotic medicines (opiates) for pain phenobarbital ritonavir tramadol What if I miss a dose? If you miss a dose, take it as soon as you can. If it is almost time for your next dose, take only that dose. Do not take double or extra doses. Where should I keep my medicine? Keep out of the reach of children. This medicine can be abused. Keep your medicine in a safe place to protect it from theft. Do not share this medicine with anyone. Selling or giving away this medicine is dangerous and against the law. Store at room temperature between 15 and 30 degrees C (59 and 86 degrees F). Protect from light. Keep container tightly closed. Throw away any unused medicine after the expiration date. Discard unused medicine and used packaging carefully. Pets and children can be harmed if they find used or lost packages. What should I tell my health care provider before I take this medicine? They need to know if you have any of these conditions: brain tumor Crohn's disease, inflammatory bowel disease, or ulcerative colitis drink more than 3 alcohol-containing drinks per day drug abuse or addiction head injury heart or circulation problems kidney disease or problems going to the bathroom liver disease lung disease, asthma, or breathing problems an unusual or allergic reaction to acetaminophen, hydrocodone, other opioid analgesics, other medicines, foods, dyes, or preservatives or trying to get breast-feeding What should I watch for while using this medicine? Tell your doctor or health child day care provider if your pain does not go away, if it gets worse, or if you have new or a different type of pain. You may develop tolerance to the medicine. Tolerance means that you will need a higher dose of the medicine for pain relief. Tolerance is normal and is expected if you take the medicine for a long time. Do not suddenly stop taking your medicine because you may develop a severe reaction. Your body becomes used to the medicine. This does NOT mean you are addicted. Addiction is a behavior related to getting and using a drug for a non-medical reason. If you have pain, you have a medical reason to take pain medicine. Your doctor will tell you how much medicine to take. If your doctor wants you to stop the medicine, the dose will be slowly lowered over time to avoid any side effects. You may get drowsy or dizzy when you first start taking the medicine or change doses. Do not drive, use machinery, or do anything that may be dangerous until you know how the medicine affects you. Stand or sit up slowly. There are different types of narcotic medicines (opiates) for pain. If you take more than one type at the same time, you may have more side effects. Give your health care provider a list of all medicines you use. Your doctor will tell you how much medicine to take. Do not take more medicine than directed. Call emergency for help if you have problems breathing. The medicine will cause constipation. Try to have a bowel movement at least every 2 to 3 days. If you do not have a bowel movement for 3 days, call your doctor or health child day care provider. Too much acetaminophen can be very dangerous. Do not take Tylenol (acetaminophen) or medicines that contain acetaminophen with this medicine. Many non-prescription medicines contain acetaminophen. Always read the labels carefully. Ibuprofen Oral tablet What is this medicine? IBUPROFEN (eye BYOO proe fen) is a non-steroidal anti-inflammatory drug (NSAID). It is used for dental pain, fever, headaches or migraines, osteoarthritis, rheumatoid arthritis, or painful monthly periods. It can also relieve minor aches and pains caused by a cold, flu, or sore throat. How should I use this medicine? Take this medicine by mouth with a glass of water. Follow the directions on the prescription label. Take this medicine with food if your stomach gets upset. Try to not lie down for at least 10 minutes after you take the medicine. Take your medicine at regular intervals. Do not take your medicine more often than directed. A special MedGuide will be given to you by the pharmacist with each prescription and refill. Be sure to read this information carefully each time. Talk to your energy sales broker regarding the use of this medicine in children. Special care may be needed. What side effects may I notice from receiving this medicine? Side effects that you should report to your doctor or health child day care provider as soon as possible: allergic reactions like skin rash, itching or hives, swelling of the face, lips, or tongue black or bloody stools, blood in the urine or in vomit breathing problems changes in vision chest pain general ill feeling or flu-like symptoms nausea or vomiting redness, blistering, peeling or loosening of the skin, including inside the mouth slurred speech or weakness on one side of the body stomach pain unexplained weight gain or swelling unusually weak or tired yellowing of eyes or skin Side effects that usually do not require medical attention (report to your doctor or health child day care provider if they continue or are bothersome): constipation or diarrhea dizziness gas or heartburn stomach upset What may interact with this medicine? Do not take this medicine with any of the following medications: cidofovir ketorolac methotrexate pemetrexed This medicine may also interact with the following medications: alcohol aspirin diuretics lithium other drugs for inflammation like prednisone warfarin What if I miss a dose? If you miss a dose, take it as soon as you can. If it is almost time for your next dose, take only that dose. Do not take double or extra doses. Where should I keep my medicine? Keep out of the reach of children. Store at room temperature between 15 and 30 degrees C (59 and 86 degrees F). Keep container tightly closed. Throw away any unused medicine after the expiration date. What should I tell my health care provider before I take this medicine? They need to know if you have any of these conditions: asthma cigarette smoker drink more than 3 alcohol containing drinks a day heart disease or circulation problems such as heart failure or leg edema (fluid retention) high blood pressure kidney disease liver disease stomach bleeding or ulcers an unusual or allergic reaction to ibuprofen, aspirin, other NSAIDS, other medicines, foods, dyes, or preservatives or trying to get breast-feeding What should I watch for while using this medicine? Tell your doctor or healthcare professional if your symptoms do not start to get better or if they get worse. This medicine does not prevent heart attack or stroke. In fact, this medicine may increase the chance of a heart attack or stroke. The chance may increase with longer use of this medicine and in people who have heart disease. If you take aspirin to prevent heart attack or stroke, talk with your doctor or health child day care provider. Do not take other medicines that contain aspirin, ibuprofen, or naproxen with this medicine. Side effects such as stomach upset, nausea, or ulcers may be more likely to occur. Many medicines available without a prescription should not be taken with this medicine. This medicine can cause ulcers and bleeding in the stomach and intestines at any time during treatment. Ulcers and bleeding can happen without warning symptoms and can cause . To reduce your risk, do not smoke cigarettes or drink alcohol while you are taking this medicine. You may get drowsy or dizzy. Do not drive, use machinery, or do anything that needs mental alertness until you know how this medicine affects you. Do not stand or sit up quickly, especially if you are an older patient. This reduces the risk of dizzy or fainting spells. This medicine can cause you to bleed more easily. Try to avoid damage to your teeth and gums when you brush or floss your teeth. You have been given the following additional information: Fracture, Finger (Open) Diphtheria Toxoid Adsorbed, Pertussis Vaccine, Acellular (Adsorbed), Tetanus Toxoid, Adsorbed Suspension for injection Cephalexin Monohydrate Oral tablet Hydrocodone Bitartrate, Acetaminophen Oral tablet Ibuprofen Oral tablet (Electronically signed by Madhavi Arana A.R.N.P. 10/19/2016 21:16)
--- NOTE | 2016-10-20 01:15 | ED MAR SUMMARY ---
..... Medication Administration Record [facility] [address] [place] [address] Patient: LIZ PEDRO Visit ID: [id number] 31y, M Weight: 68.0 kg Height/Length: 70 in BMI: 21.5 ALLERGIES: No Known Drug Allergy Given 21:10/19/2016 Toya Villafuerte, Medication Administered: TDAP [IM], Dose: 0.5 mL IM. Medication Ordered: Tdap IM 0.5 mL (NOW, per protocol). Given 21:10/19/2016 Toya Villafuerte, Medication Administered: CEFTRIAXONE [IM], Dose: 1 gm IM, With: 1% LIDOCAINE 2.1 mL. Medication Ordered: Ceftriaxone IM 1 gm (NOW).
--- NOTE | 2016-10-20 01:15 | ED MAR SUMMARY ---
..... Medication Administration Record [facility] [address] [place] [address] Patient: LIZ PEDRO Visit ID: [id number] 31y, M Weight: 68.0 kg Height/Length: 70 in BMI: 21.5 ALLERGIES: No Known Drug Allergy Given 21:10/19/2016 Toya Villafuerte, Medication Administered: TDAP [IM], Dose: 0.5 mL IM. Medication Ordered: Tdap IM 0.5 mL (NOW, per protocol). Given 21:10/19/2016 Toya Villafuerte, Medication Administered: CEFTRIAXONE [IM], Dose: 1 gm IM, With: 1% LIDOCAINE 2.1 mL. Medication Ordered: Ceftriaxone IM 1 gm (NOW).
--- NOTE | 2016-10-20 01:15 | ED DISCHARGE INSTRUCTIONS ---
Patient: LIZ PEDRO General Instructions [facility] VisitID: [id number] [address], [place] [address] 31y, M Registration Date/Time: 10/19/2016 Open nondisplaced distal phalanx fracture of the left little finger. No angulated fracture of the phalanx. INSTRUCTIONS Apply ice for 20 minutes four times a day for two days until better. Don't apply ice directly to skin. Elevate affected areas above chest level for two days until better. Wear aluminum splint until released. Protect wound and keep wound area clean. Change dressing twice daily. Soak in warm soapy water twice daily. Apply bacitracin twice daily. Warnings: COMPLICATIONS: Complications from this condition include: infection. Future problems may include infection. INFECTION: Watch for signs of infection (increasing heat and redness, pus-like drainage, swelling, or increased pain). Return or see your doctor if these signs occur. It is important to follow up with a physician for further evaluation and treatment. TETANUS: You were given a tetanus shot during your visit. Make a note for future reference. GENERAL WARNINGS: Return or contact your physician immediately if your condition worsens or changes unexpectedly, if not improving as expected, or if other problems arise. Specifically return if problem worsens. Prescription Medications: Cephalexin 500 mg: take 1 capsule orally every 12 hours for 10 days. No refill. [place] 5 mg / 325 mg tablets: take 1 to 2 orally every 6 hours as needed for pain. Dispense fifteen (15). No refills. Substitution is permissible. Motrin 800 mg tablets: take 1 tablet orally every 8 hours as needed for pain. Dispense thirty (30). No refills. Substitution is permissible. Understanding of the discharge instructions verbalized by patient. Follow-up with: [facility], [place], , [address], [place] [id number]; Flo Rojas M.D., [place], , [address], [facility] [id number]; Efra Mills M.D., [place], , [address], , [place] [id number]; Altaf Plaza MD, Orthopedic Surgeon, , [address] , [place], [address]; Cecil Morataya MD, Orthopedic Surgeon, , [id number], , [place], [id number] Follow up in about three days even if well. Call for an appointment. Summary of care provided to patient. ADDITIONAL INFORMATION Fracture:Finger [Open] You have a fracture of your finger (broken finger) with a nearby cut, puncture or deep scrape. This causes local pain, swelling and bruising. Because of the open injury, there is a risk of infection in the skin and bone. Antibiotics will be used to lower the risk of infection. This injury takes about four weeks to heal. Finger injuries are often treated with a splint, cast or by taping the injured finger to the next one ("pedro taping"). This protects the injured finger and holds the bone in position while it heals. More serious fractures may require surgery. If the FINGERNAIL has been severely injured, it will probably fall off in 1-2 weeks. A new fingernail will usually start to grow back within a month. Home Care: Keep your hand elevated to reduce pain and swelling. When sitting or lying down elevate your arm above the level of your heart. You can do this by placing your arm on a pillow that rests on your chest or on a pillow at your side. This is most important during the first 48 hours after injury. Apply an ice pack (ice cubes in a plastic bag, wrapped in a towel) over the injured area for 20 minutes every 1-2 hours the first day for pain relief. Continue this 3-4 times a day until the pain and swelling goes away. Keep the cast/splint completely dry at all times. Bathe with your cast/splint out of the water, protected with a large plastic bag, rubber-banded at the top end. If a fiberglass cast/splint gets wet, you can dry it with a hair-dryer. If pedro tape was applied and it becomes wet or dirty, change it. You may replace it with paper, plastic or cloth tape. Cloth tape and paper tapes must be kept dry. Keep the pedro tape in place for at least four weeks. You may use acetaminophen (Tylenol) or ibuprofen (Motrin, Advil) to control pain, unless another pain medicine was prescribed. [ NOTE : If you have chronic liver or kidney disease or ever had a stomach ulcer or GI bleeding, talk with your doctor before using these medicines.] Take all antibiotics until finished. Follow Up with your doctor within one week, or as advised by our staff, to be sure the bone is healing properly, . [NOTE: A radiologist will review any X-rays that were taken. We will notify you of any new findings that may affect your care.] Return Promptly or contact your doctor if any of the following occur: The plaster cast or splint becomes wet or soft The fiberglass cast or splint remains wet for more than 24 hours Pain or swelling increase Finger becomes cold, blue, numb or tingly Redness, warmth, swelling, drainage from the wound or foul odor from a cast or splint Fever of 100.4F (38C) or higher, or as directed by your healthcare provider Diphtheria Toxoid Adsorbed, Pertussis Vaccine, Acellular (Adsorbed), Tetanus Toxoid, Adsorbed Suspension for injection What is this medicine? DIPHTHERIA and TETANUS TOXOIDS; PERTUSSIS VACCINE (dif THEER ee uh and TET n us TOK soids; per TUS iss vak SEEN) is used to prevent diphtheria, tetanus, and pertussis infections. How should I use this medicine? This vaccine is for injection into a muscle. It is given by a health health and social care teacher. A copy of Vaccine Information Statements will be given before each vaccination. Read this sheet carefully each time. The sheet may change frequently. Talk to your stripper apprentice regarding the use of this vaccine in children. While the DTP vaccine may be given to children ages 6 weeks to 7 years and the Tdap vaccine may be given to children at least 10 years old, precautions do apply. What side effects may I notice from receiving this medicine? Side effects that you should report to your doctor or health health and social care teacher as soon as possible: allergic reactions like skin rash, itching or hives, swelling of the face, lips, or tongue breathing problems fever of 103 degrees F or more flu-like symptoms inconsolable crying infection pain, tingling, numbness in the hands or feet seizures swelling of arm or leg that was injected unusually weak or tired Side effects that usually do not require immediate medical attention (report these side effects to your doctor or health health and social care teacher if they continue or are bothersome): fussy, irritable loss of appetite fever of 102 degrees F or less pain, tenderness, redness, swelling, or a 'knot' at site where injected vomiting What may interact with this medicine? immune globulin medicines that suppress your immune function like adalimumab, anakinra, infliximab medicines to treat cancer medicines that treat or prevent blood clots like warfarin, enoxaparin, and dalteparin steroid medicines like prednisone or cortisone What if I miss a dose? It is important not to miss your dose. Call your doctor or health health and social care teacher if you are unable to keep an appointment. Where should I keep my medicine? This drug is given in a hospital or clinic and will not be stored at home. What should I tell my health care provider before I take this medicine? They need to know if you have any of these conditions: blood disorders like hemophilia fever or infection immune system problems neurologic disease seizures an unusual or allergic reaction to vaccines, thimerosal, latex, other medicines, foods, dyes, or preservatives or trying to get breast-feeding What should I watch for while using this medicine? See your health care provider for all shots of this vaccine as directed. To have protection from infection, you must have 3 shots of this vaccine plus boosters as needed. Tell your doctor right away if you have any serious or unusual side effects after getting this vaccine. Cephalexin Monohydrate Oral tablet What is this medicine? CEPHALEXIN (sef a BHANU in) is a cephalosporin antibiotic. It is used to treat certain kinds of bacterial infections It will not work for colds, flu, or other viral infections. How should I use this medicine? Take this medicine by mouth with a full glass of water. Follow the directions on the prescription label. This medicine can be taken with or without food. Take your medicine at regular intervals. Do not take your medicine more often than directed. Take all of your medicine as directed even if you think you are better. Do not skip doses or stop your medicine early. Talk to your stripper apprentice regarding the use of this medicine in children. While this drug may be prescribed for selected conditions, precautions do apply. What side effects may I notice from receiving this medicine? Side effects that you should report to your doctor or health health and social care teacher as soon as possible: allergic reactions like skin rash, itching or hives, swelling of the face, lips, or tongue breathing problems pain or trouble passing urine redness, blistering, peeling or loosening of the skin, including inside the mouth severe or watery diarrhea unusually weak or tired yellowing of the eyes, skin Side effects that usually do not require medical attention (report to your doctor or health health and social care teacher if they continue or are bothersome): gas or heartburn genital or anal irritation headache joint or muscle pain nausea, vomiting What may interact with this medicine? probenecid some other antibiotics What if I miss a dose? If you miss a dose, take it as soon as you can. If it is almost time for your next dose, take only that dose. Do not take double or extra doses. There should be at least 4 to 6 hours between doses. Where should I keep my medicine? Keep out of the reach of children. Store at room temperature between 59 and 86 degrees F (15 and 30 degrees C). Throw away any unused medicine after the expiration date. What should I tell my health care provider before I take this medicine? They need to know if you have any of these conditions: kidney disease stomach or intestine problems, especially colitis an unusual or allergic reaction to cephalexin, other cephalosporins, penicillins, other antibiotics, medicines, foods, dyes or preservatives or trying to get breast-feeding What should I watch for while using this medicine? Tell your doctor or health health and social care teacher if your symptoms do not begin to improve in a few days. Do not treat diarrhea with over the counter products. Contact your doctor if you have diarrhea that lasts more than 2 days or if it is severe and watery. If you have diabetes, you may get a false-positive result for sugar in your urine. Check with your doctor or health health and social care teacher. Hydrocodone Bitartrate, Acetaminophen Oral tablet What is this medicine? ACETAMINOPHEN; HYDROCODONE (a set a MARIBETH bhumi fen; janae droe KOE done) is a pain reliever. It is used to treat mild to moderate pain. How should I use this medicine? Take this medicine by mouth. Swallow it with a full glass of water. Follow the directions on the prescription label. If the medicine upsets your stomach, take the medicine with food or milk. Do not take more than you are told to take. Talk to your stripper apprentice regarding the use of this medicine in children. This medicine is not approved for use in children. What side effects may I notice from receiving this medicine? Side effects that you should report to your doctor or health health and social care teacher as soon as possible: allergic reactions like skin rash, itching or hives, swelling of the face, lips, or tongue breathing problems confusion feeling faint or lightheaded, falls stomach pain yellowing of the eyes or skin Side effects that usually do not require medical attention (report to your doctor or health health and social care teacher if they continue or are bothersome): nausea, vomiting stomach upset What may interact with this medicine? alcohol antihistamines isoniazid medicines for depression, anxiety, or psychotic disturbances medicines for sleep muscle relaxants naltrexone narcotic medicines (opiates) for pain phenobarbital ritonavir tramadol What if I miss a dose? If you miss a dose, take it as soon as you can. If it is almost time for your next dose, take only that dose. Do not take double or extra doses. Where should I keep my medicine? Keep out of the reach of children. This medicine can be abused. Keep your medicine in a safe place to protect it from theft. Do not share this medicine with anyone. Selling or giving away this medicine is dangerous and against the law. Store at room temperature between 15 and 30 degrees C (59 and 86 degrees F). Protect from light. Keep container tightly closed. Throw away any unused medicine after the expiration date. Discard unused medicine and used packaging carefully. Pets and children can be harmed if they find used or lost packages. What should I tell my health care provider before I take this medicine? They need to know if you have any of these conditions: brain tumor Crohn's disease, inflammatory bowel disease, or ulcerative colitis drink more than 3 alcohol-containing drinks per day drug abuse or addiction head injury heart or circulation problems kidney disease or problems going to the bathroom liver disease lung disease, asthma, or breathing problems an unusual or allergic reaction to acetaminophen, hydrocodone, other opioid analgesics, other medicines, foods, dyes, or preservatives or trying to get breast-feeding What should I watch for while using this medicine? Tell your doctor or health health and social care teacher if your pain does not go away, if it gets worse, or if you have new or a different type of pain. You may develop tolerance to the medicine. Tolerance means that you will need a higher dose of the medicine for pain relief. Tolerance is normal and is expected if you take the medicine for a long time. Do not suddenly stop taking your medicine because you may develop a severe reaction. Your body becomes used to the medicine. This does NOT mean you are addicted. Addiction is a behavior related to getting and using a drug for a non-medical reason. If you have pain, you have a medical reason to take pain medicine. Your doctor will tell you how much medicine to take. If your doctor wants you to stop the medicine, the dose will be slowly lowered over time to avoid any side effects. You may get drowsy or dizzy when you first start taking the medicine or change doses. Do not drive, use machinery, or do anything that may be dangerous until you know how the medicine affects you. Stand or sit up slowly. There are different types of narcotic medicines (opiates) for pain. If you take more than one type at the same time, you may have more side effects. Give your health care provider a list of all medicines you use. Your doctor will tell you how much medicine to take. Do not take more medicine than directed. Call emergency for help if you have problems breathing. The medicine will cause constipation. Try to have a bowel movement at least every 2 to 3 days. If you do not have a bowel movement for 3 days, call your doctor or health health and social care teacher. Too much acetaminophen can be very dangerous. Do not take Tylenol (acetaminophen) or medicines that contain acetaminophen with this medicine. Many non-prescription medicines contain acetaminophen. Always read the labels carefully. Ibuprofen Oral tablet What is this medicine? IBUPROFEN (eye BYOO proe fen) is a non-steroidal anti-inflammatory drug (NSAID). It is used for dental pain, fever, headaches or migraines, osteoarthritis, rheumatoid arthritis, or painful monthly periods. It can also relieve minor aches and pains caused by a cold, flu, or sore throat. How should I use this medicine? Take this medicine by mouth with a glass of water. Follow the directions on the prescription label. Take this medicine with food if your stomach gets upset. Try to not lie down for at least 10 minutes after you take the medicine. Take your medicine at regular intervals. Do not take your medicine more often than directed. A special MedGuide will be given to you by the pharmacist with each prescription and refill. Be sure to read this information carefully each time. Talk to your stripper apprentice regarding the use of this medicine in children. Special care may be needed. What side effects may I notice from receiving this medicine? Side effects that you should report to your doctor or health health and social care teacher as soon as possible: allergic reactions like skin rash, itching or hives, swelling of the face, lips, or tongue black or bloody stools, blood in the urine or in vomit breathing problems changes in vision chest pain general ill feeling or flu-like symptoms nausea or vomiting redness, blistering, peeling or loosening of the skin, including inside the mouth slurred speech or weakness on one side of the body stomach pain unexplained weight gain or swelling unusually weak or tired yellowing of eyes or skin Side effects that usually do not require medical attention (report to your doctor or health health and social care teacher if they continue or are bothersome): constipation or diarrhea dizziness gas or heartburn stomach upset What may interact with this medicine? Do not take this medicine with any of the following medications: cidofovir ketorolac methotrexate pemetrexed This medicine may also interact with the following medications: alcohol aspirin diuretics lithium other drugs for inflammation like prednisone warfarin What if I miss a dose? If you miss a dose, take it as soon as you can. If it is almost time for your next dose, take only that dose. Do not take double or extra doses. Where should I keep my medicine? Keep out of the reach of children. Store at room temperature between 15 and 30 degrees C (59 and 86 degrees F). Keep container tightly closed. Throw away any unused medicine after the expiration date. What should I tell my health care provider before I take this medicine? They need to know if you have any of these conditions: asthma cigarette smoker drink more than 3 alcohol containing drinks a day heart disease or circulation problems such as heart failure or leg edema (fluid retention) high blood pressure kidney disease liver disease stomach bleeding or ulcers an unusual or allergic reaction to ibuprofen, aspirin, other NSAIDS, other medicines, foods, dyes, or preservatives or trying to get breast-feeding What should I watch for while using this medicine? Tell your doctor or healthcare professional if your symptoms do not start to get better or if they get worse. This medicine does not prevent heart attack or stroke. In fact, this medicine may increase the chance of a heart attack or stroke. The chance may increase with longer use of this medicine and in people who have heart disease. If you take aspirin to prevent heart attack or stroke, talk with your doctor or health health and social care teacher. Do not take other medicines that contain aspirin, ibuprofen, or naproxen with this medicine. Side effects such as stomach upset, nausea, or ulcers may be more likely to occur. Many medicines available without a prescription should not be taken with this medicine. This medicine can cause ulcers and bleeding in the stomach and intestines at any time during treatment. Ulcers and bleeding can happen without warning symptoms and can cause . To reduce your risk, do not smoke cigarettes or drink alcohol while you are taking this medicine. You may get drowsy or dizzy. Do not drive, use machinery, or do anything that needs mental alertness until you know how this medicine affects you. Do not stand or sit up quickly, especially if you are an older patient. This reduces the risk of dizzy or fainting spells. This medicine can cause you to bleed more easily. Try to avoid damage to your teeth and gums when you brush or floss your teeth. You have been given the following additional information: Fracture, Finger (Open) Diphtheria Toxoid Adsorbed, Pertussis Vaccine, Acellular (Adsorbed), Tetanus Toxoid, Adsorbed Suspension for injection Cephalexin Monohydrate Oral tablet Hydrocodone Bitartrate, Acetaminophen Oral tablet Ibuprofen Oral tablet (Electronically signed by Madhavi Arana A.R.N.P. 10/19/2016 21:16)
== END 2016-10-19 21:15 | disposition home or self-care (01) ==
LOC: ED SRH 19:36
DX: S62.667B Nondisplaced fracture of distal phalanx of left little finger, initial encounter for open fracture (principal); W27.0XXA Contact with workbench tool, initial encounter; Y93.89 Activity, other specified; Y99.8 Other external cause status; Y92.009 Unspecified place in unspecified non-institutional (private) residence as the place of occurrence of the external cause; F17.210 Nicotine dependence, cigarettes, uncomplicated; Z23 Encounter for immunization